=== PATIENT | female | born 1965 | race Caucasian/White ===

== ENCOUNTER → 2020-02-14 08:13 | Outpatient (BNVA) | payer OTHER, SELFPAY | PROVIDERS: PCP Internal Medicine; Referring Provider Internal Medicine; Visit Provider Internal Medicine Cardiovascular Disease | DX: Z76.89 Persons encountering health services in other specified circumstances (principal) ==

== ENCOUNTER 2020-02-28 07:55 | Outpatient (REF) | payer OTHER, SELFPAY ==
[2020-02-28 08:16] LABS: COVID-19 Test Negative (Negative)
== END 2020-02-28 07:56 | disposition home or self-care (01) ==
LOC: HO.EMPCOV 07:55
PROVIDERS: PCP Internal Medicine; Visit Provider Internal Medicine
DX: Z20.828 Contact with and (suspected) exposure to other viral communicable diseases (principal)
CPT/HCPCS: 87635; C9803

== ENCOUNTER 2020-03-05 08:56 | Outpatient (REF) | payer OTHER, SELFPAY ==
[2020-03-05 13:04] LABS: Influenza A PCR NEGATIVE (Negative); Influenza B PCR NEGATIVE (Negative); Resp Syncy Virus RNA Qual PCR NEGATIVE (Negative); SARS COV2 PCR INHOUSE NEGATIVE (Negative)
== END 2020-03-05 08:57 | disposition home or self-care (01) ==
LOC: HO.LAB 08:56
PROVIDERS: Visit Provider Nurse Practitioner Family
DX: R06.02 Shortness of breath (principal); Z20.828 Contact with and (suspected) exposure to other viral communicable diseases
CPT/HCPCS: 0241U

== ENCOUNTER 2020-03-18 07:12 | Outpatient (REF) | payer OTHER, SELFPAY ==
[2020-03-18 08:15] LABS: COVID-19 Test Negative (Negative); IDNOW Serial# 55D5AD1C
== END 2020-03-18 07:13 | disposition home or self-care (01) ==
LOC: HO.EMPCOV 07:12
PROVIDERS: PCP Internal Medicine; Visit Provider Internal Medicine
DX: Z20.828 Contact with and (suspected) exposure to other viral communicable diseases (principal)
CPT/HCPCS: 87635; C9803

== ENCOUNTER 2020-03-24 08:42 | Outpatient (REF) | payer OTHER, SELFPAY ==
[2020-03-24 09:00] LABS: COVID-19 Test Negative (Negative)
== END 2020-03-24 08:43 | disposition home or self-care (01) ==
LOC: HO.EMPCOV 08:42
PROVIDERS: PCP Internal Medicine; Visit Provider Internal Medicine
DX: Z20.828 Contact with and (suspected) exposure to other viral communicable diseases (principal)
CPT/HCPCS: 87635; C9803

== ENCOUNTER → 2020-03-31 12:51 | Outpatient (REF) | payer OTHER, SELFPAY ==
--- NOTE | 2020-03-31 12:54 | HM_ITS ---
IDENTIFICATION DATA: 55-year-old female. TYPE OF PROCEDURE: Cardiac event monitoring. INDICATIONS: Palpitation. REQUESTING PROVIDER: Alli Crespo MD. TECHNIQUE: The patient was hooked up to cardiac event monitor from March 31, 2020 to April 30, 2020 for a total period of 30 days. The patient was continuously monitored during this time. FINDINGS: Baseline rhythm was normal sinus rhythm with heart rate varying from 74 to 81 beats per minute. There were no arrhythmias noted or reported. There were no patient reported events. CONCLUSION: Event monitor is remarkable for baseline normal sinus rhythm with no arrhythmias. Martin Strickland MD NRS/MODL / [id number]
== END ==
LOC: HO.CARD 12:51
PROVIDERS: PCP Internal Medicine; Visit Provider Internal Medicine Cardiovascular Disease
DX: R00.2 Palpitations (principal)
CPT/HCPCS: 93270

== ENCOUNTER 2020-04-17 07:18 | Outpatient (REF) | payer OTHER, SELFPAY ==
[2020-04-17 07:35] LABS: COVID-19 Test Negative (Negative)
== END 2020-04-17 07:19 | disposition home or self-care (01) ==
LOC: HO.EMPCOV 07:18
PROVIDERS: Visit Provider Internal Medicine
DX: Z20.822 Contact with and (suspected) exposure to COVID-19 (principal)
CPT/HCPCS: 36415; 87635; C9803

== ENCOUNTER 2020-05-01 09:15 | Outpatient (REF) | payer OTHER, SELFPAY ==
[2020-05-01 09:33] LABS: COVID-19 Test Negative (Negative); IDNOW Serial# 55D5AD1C
== END 2020-05-01 09:16 | disposition home or self-care (01) ==
LOC: HO.EMPCOV 09:15
PROVIDERS: Visit Provider Internal Medicine
DX: Z20.822 Contact with and (suspected) exposure to COVID-19 (principal)
CPT/HCPCS: 36415; 87635; C9803

== ENCOUNTER 2020-05-21 15:44 | Outpatient (REF) | payer OTHER, SELFPAY ==
[2020-05-21 16:01] LABS: COVID-19 Test Negative (Negative)
== END 2020-05-21 15:45 | disposition home or self-care (01) ==
LOC: HO.LAB 15:44
PROVIDERS: Visit Provider Internal Medicine
DX: Z20.822 Contact with and (suspected) exposure to COVID-19 (principal)
CPT/HCPCS: 36415; 87635; C9803

== ENCOUNTER 2020-05-26 08:10 | Outpatient (REF) | payer OTHER, SELFPAY ==
[2020-05-26 08:20] LABS: COVID-19 Test Positive (Negative)
== END 2020-05-26 08:11 | disposition home or self-care (01) ==
LOC: HO.EMPCOV 08:10
PROVIDERS: Visit Provider Internal Medicine
DX: Z20.822 Contact with and (suspected) exposure to COVID-19 (principal)
CPT/HCPCS: 36415; 87635; C9803

== ENCOUNTER 2020-07-29 14:15 | Outpatient (REF) | payer OTHER, SELFPAY ==
--- NOTE | ~2020-07-29 | XR_ITS ---
EXAMINATION: XR LUMBOSACRAL SPINE WITH OBLIQUES CLINICAL INFORMATION: Low back pain COMPARISON: None TECHNIQUE: AP, both oblique, and lateral views of the lumbar spine. Lateral view of the lumbosacral junction. FINDINGS: There is mild 2 mm anterolisthesis of L4 with respect L5. Bone alignment is otherwise normal. No fracture or dislocation is seen. Disc spaces are normal. No pars defect is seen. There is mild lower lumbar spine facet arthritis. XR/XR lumbar spine 4V min IMPRESSION: Mild lower lumbar spine facet arthritis.
== END 2020-07-29 14:16 | disposition home or self-care (01) ==
LOC: HO.HMGCX 14:15
PROVIDERS: PCP Internal Medicine; Visit Provider Physician Assistant
DX: M54.5 Low back pain (principal); G89.29 Other chronic pain
CPT/HCPCS: 72110

== ENCOUNTER 2020-08-01 06:55 | Outpatient (REF) | payer OTHER, SELFPAY ==
[2020-08-01 11:39] LABS: MANUAL DIFF FLAG NO
[2020-08-01 12:01] LABS: Basophils Absolute Auto 0.1 X10*3/uL (0.0-0.2); Basophils Percent Auto 0.8 % (0-2); Eosinophils Absolute Auto 0.1 X10*3/uL (0.0-0.4); Eosinophils Percent Auto 2.3 % (0-4); Hematocrit 43.7 % (37-47); Hemoglobin 14.4 g/dl (12.0-16.0); Imm Gran Abs Auto 0.01 X10*3/uL (0.00-0.03); Imm Gran Pct Auto 0.2 % (0.0-0.4); Lymphocytes Absolute Auto 1.8 X10*3/uL (1.2-4.9); Lymphocytes Percent Auto 30.1 % (20-40); Mean Corpuscular Hemoglobin 31.4 pg (27.0-33.0); Mean Corpuscular Volume 95.2 fL (80-98); Mean Platelet Volume 9.7 fL (9.4-12.3); Monocytes Absolute Auto 0.6 X10*3/uL (0.1-1.2); Monocytes Percent Auto 9.2 % (2-11); Neutrophils Absolute Auto 3.5 X10*3/uL (2.0-8.3); Neutrophils Percent Auto 57.4 % (45-73); Platelet Count 282 X10*3/uL (160-400); Red Blood Count 4.59 X10*6/uL (4.20-5.50); Red Cell Distribution Width 13.1 % (11.0-16.0); White Blood Count 6.1 X10*3/uL (4.8-10.8)
[2020-08-01 12:02] LABS: Alanine Aminotransferase 79 U/L (0-31); Albumin Level 4.1 g/dL (3.5-5.0); Alkaline Phosphatase 110 U/L (39-117); Anion Gap 16 (12-20); Aspartate Amino Transferase 58 U/L (5-31); Bilirubin Total 1.1 mg/dL (0.0-1.0); Blood Urea Nitrogen 14 mg/dL (9-16); Calcium 9.4 mg/dL (8.4-10.2); Carbon Dioxide 24 mmol/L (22-29); Chloride 105 mmol/L (96-108); Cholesterol 137 mg/dL; Estimated Glomerular Filt Rate > 60; Glucose Fasting 100 mg/dL (60-99); HDL Cholesterol 32 mg/dL; LDL Cholesterol Calculated 74 mg/dl; Potassium 3.8 mmol/L (3.3-5.1); Sodium 141 mmol/L (135-145); Triglycerides 158 mg/dL
== END 2020-08-01 06:56 | disposition home or self-care (01) ==
LOC: HO.HMGCLDS 06:55
PROVIDERS: PCP Internal Medicine; Visit Provider Physician Assistant
DX: Z00.00 Encounter for general adult medical examination without abnormal findings (principal); I25.10 Atherosclerotic heart disease of native coronary artery without angina pectoris
CPT/HCPCS: 36415; 80053; 80061; 85025

== ENCOUNTER 2020-08-07 07:26 | Outpatient (REF) | payer OTHER, SELFPAY ==
[2020-08-07 11:51] LABS: Estimated Average Glucose 114 mg/dL; Hemoglobin A1c % 5.6 %
== END 2020-08-07 07:27 | disposition home or self-care (01) ==
LOC: HO.HMGCLDS 07:26
PROVIDERS: PCP Internal Medicine; Visit Provider Internal Medicine
DX: R73.9 Hyperglycemia, unspecified (principal)
CPT/HCPCS: 36415; 83036

== ENCOUNTER 2020-08-30 07:51 | Outpatient (REF) | payer OTHER, SELFPAY ==
--- NOTE | ~2020-08-30 | MM_ITS ---
EXAMINATION: MM SCREENING DIGITAL BREAST TOMOSYNTHESIS, BILATERAL CLINICAL INFORMATION: Screening. Asymptomatic. The lifetime risk of breast cancer based on the Tyrer-Cuzick Model is 5%. COMPARISON: Mammography: 06/18/2019; outside mammography 06/12/2018 and 06/01/2017 ([place]). TECHNIQUE: Digital breast tomosynthesis is performed in both the craniocaudal and mediolateral oblique views along with computer-aided detection (CAD). Synthesized 2D images are generated from the tomosynthesis. Additional left cleavage view is provided. FINDINGS: There are scattered areas of fibroglandular density (ACR BI-RADS breast composition Category b). The left CC view has a 0.9 cm nodular density with anterior pointed apex at the posterior medial breast. The finding extends beyond the posterior medial film margin. There is no correlate on MLO or left cleavage view. This most likely is related to artifact from the sternalis muscle. Patient will be recalled to further characterize. The remainder of the breasts are unremarkable. There are no abnormal calcifications. The axilla and skin contours are unremarkable. MM/MM tomosynthesis screening BI IMPRESSION: 1. Left: Nodular asymmetric density extending beyond film margin posterior medial left breast limited to CC view. Finding most likely related to artifact from sternalis muscle. 2. Right: No mammographic evidence of malignancy. ASSESSMENT: BI-RADS 0: Incomplete - Need Additional Imaging Evaluation RECOMMENDATION: 1. Additional views of the left breast (3-D LM). 2. Targeted ultrasound left breast. 3. Radiology department staff will contact the patient for additional imaging. This patient's information was entered into a reminder system with a target due date for their next mammogram.
== END 2020-08-30 07:52 | disposition home or self-care (01) ==
LOC: HO.MAMMO 07:51
PROVIDERS: Visit Provider Internal Medicine
DX: Z12.31 Encounter for screening mammogram for malignant neoplasm of breast (principal)
CPT/HCPCS: 77063; 77067

== ENCOUNTER 2020-09-08 10:46 | Outpatient (REF) | payer OTHER, SELFPAY ==
--- NOTE | ~2020-09-08 | US_ITS ---
EXAMINATION: MM DIAGNOSTIC DIGITAL BREAST TOMOSYNTHESIS, LEFT US DIAGNOSTIC ULTRASOUND BREAST, LEFT CLINICAL INFORMATION: Recall from screening for asymmetric density posterior medial breast on MLO view possibly sternalis muscle artifact. COMPARISON: Mammography: 08/30/2020, 06/18/2019; outside mammography 06/12/2018 and 06/01/2017 ([place]). TECHNIQUE: Digital breast tomosynthesis is performed. 2D images are generated from the tomosynthesis. The following views are obtained: CC medial and LM x2 projections are obtained. Ultrasound left breast is targeted to the medial aspect. Grayscale imaging and color Doppler are performed without and with harmonics. FINDINGS: There are scattered areas of fibroglandular density (ACR BI-RADS breast composition Category b). There is a cutaneous scar corresponding to prior sternotomy which is marked on the CC medial view. This resides close to the area of recall. The additional views show no persistent asymmetric density or mass or architectural abnormality. Ultrasound demonstrates no chest wall lesion. There is no cystic or solid mass or architectural abnormality. Results are discussed with the patient at time of visit. US/US breast LT limited IMPRESSION: Additional views show no persistent asymmetric density. Targeted ultrasound is unremarkable. No chest wall mass. ASSESSMENT: BI-RADS 2: Benign RECOMMENDATION: Routine annual mammography screening. This patient's information was entered into a reminder system with a target due date for their next mammogram.
== END 2020-09-08 10:47 | disposition home or self-care (01) ==
LOC: HO.MAMMO 10:46
PROVIDERS: Visit Provider Internal Medicine
DX: R92.2 Inconclusive mammogram (principal)
CPT/HCPCS: 76642; 77061; 77065

== ENCOUNTER 2020-10-20 07:54 | Emergency (ER) | payer OTHER, SELFPAY ==
[2020-10-20 07:56] VITALS: BP 129/61; PULSE 88; RESP 16; TEMP 36.6; O2SAT 95; BMI 26.4
--- NOTE | 2020-10-20 09:29 | ED.GENADULT ---
HPI - General Adult General Chief complaint: Back Pain/Injury Stated complaint: back pain Time Seen by Provider: 10/20/20 09:06 Source: patient Mode of arrival: ambulatory Limitations: no limitations History of Present Illness HPI narrative: 55-year-old female who presents emergency department for evaluation of severe lower back pain. Patient states that on Tuesday she did do some exercises. She woke up on Tuesday morning (3 days prior to evaluation) with pain and her left lower back area. She states that the pain has now changed is located in the right lower back area only. She states the pain is a constant, sharp pain which is 9/10 at its worst. The pain is worse with movement. She states the pain does radiate to her right hip. She denies numbness or weakness of her lower extremities. Denies loss of bowel or better control. She has been taking acetaminophen with no relief for pain. Today, the patient is having difficulty walking secondary to the severity of her pain. Patient states that she has been having intermittent back pain over the past several months . She had a lumbar spine x-ray on 07/29/2020 which revealed mild lower lumbar spine facet arthritis with mild 2 mm anteriorlithiasis of L5 with respect to L4. Related Data Home Medications Medication Instructions Recorded Confirmed aspirin 81 mg tablet,delayed 81 mg PO DAILY 02/14/20 07/17/20 release atorvastatin 80 mg tablet 80 mg PO DAILY 02/14/20 07/17/20 fexofenadine 180 mg tablet 180 mg PO DAILY 02/14/20 07/17/20 fluticasone propionate 50 spray INTRANASAL 02/14/20 07/17/20 mcg/actuation nasal spray,suspension metoprolol succinate 25 mg 25 mg PO DAILY 02/14/20 07/17/20 tablet,extended release 24 hr Previous Rx's Medication Instructions Recorded erythromycin 5 mg/gram (0.5 %) eye 1 appl OPHTHALMIC-LEFT QID #3.5 g 09/09/20 ointment cyclobenzaprine 10 mg PO TID PRN #15 tab 10/20/20 Allergies Allergy/AdvReac Type Severity Reaction Status Date / Time cabbage Allergy Severe HIVES Unverified 12/13/19 15:51 lorazepam [Ativan] Allergy Severe Swelling Verified 10/20/20 09:46 peanut [PEANUT] Allergy Unknown HIVES Unverified 12/13/19 15:51 SEAFOOD Allergy Severe DIFFICULTY Uncoded 12/13/19 15:51 BREATHING Review of Systems Review of Systems: Yes all other systems are reviewed and are negative [facility] Past Medical History [facility] Narrative: Social history: She denies tobacco use, she drinks alcohol in moderation. She denies drug use. Medical History Coronary artery dissection Ischemic cardiomyopathy Palpitations Surgical History H/O tubal ligation H/O: hysterectomy S/P CABG x 2 Family History Family History Father Diabetes Hypertension Cirrhosis Mother Hypertension Arthritis Osteoporosis FHx: mental illness Social History Social History Advance Directives: Yes Advance Directives Information Provided: Yes Advance Directives on File: No Physical Exam Vital Signs: Vital Signs: Last Vital Signs Temp 98.3 F 10/20/20 09:43 Pulse 77 10/20/20 09:43 Resp 16 10/20/20 09:43 BP 126/60 10/20/20 09:43 Pulse Ox 96 10/20/20 09:43 Body Mass Index 26.4 Const: Other: Very pleasant, cooperative female, awake, alert, answers all questions appropriately, appears to be in distress secondary to her pain, the patient had difficulty moving from the wheelchair to the stretcher required assistance from me and her and ordered to get her into the bed. HENMT: Head: Yes normal to inspection, Yes normocephalic and Yes atraumatic Ears: external ears normal General nose exam: Normal external nose present Face and sinus: Yes normal facial exam Mouth: Normal oral and palatal mucosa present Throat: Yes posterior oropharynx normal Eyes: Periorbital: periorbital findings normal Eyelids: Yes eyelids normal Conjunctivae: conjunctivae normal Sclerae: sclerae normal Corneas: corneas normal Pupils: Equal, round and reactive pupils present Direct Ophthalmoscopy: normal light reflex Neck: Neck: Yes full ROM, Yes no lymphadenopathy, Yes no meningeal signs, Yes trachea midline and Yes supple Chest: Chest palpation & inspection: normal inspection of the chest and normal palpation of entire chest wall Resp: Effort & Inspection: normal respiratory effort and able to speak in complete sentences Auscultation: clear to auscultation bilaterally Cardio: Rate: regular rate Rhythm: regular rhythm Heart sounds: S1 normal heart sound present, S2 normal heart sound present and no murmurs GI: Inspection: Yes normal to inspection Palpation (GI): Soft to palpation, nontender, no guarding, not rigid and No hepatosplenomegaly present : General: Yes no CVA tenderness Back/Spine/Pelvis: Back: no CVA tenderness Cervical Spine: normal cervical lordosis Thoracic/Lumbar Spine: thoracic and lumbar spine normal to inspection, straight leg raise negative bilaterally, No paraspinal muscle tenderness, No thoraco-lumbar spasm, No thoracic spinal tenderness, No lumbar spinal tenderness and other (Tender right SI joint) Skin: Lesions: no lesions Rashes: no rashes Wounds: no wounds Neuro: General: no meningeal signs Cranial nerves: Yes CN's II-XII intact bilaterally and Yes Equal, round and reactive pupils present Cognition (Neuro): normal cognition Motor exam (neuro): 5/5 motor strength present throughout Extrem: General: Yes normal to inspection and Yes full ROM Psych: Appearance: well kempt Mental Status: mental status grossly normal Speech and movement: Normal speech and movement present Affect: normal affect Attitude: cooperative Thought process: Normal thought process present Thought content: Normal thought content present Course Course Course Narrative: 55-year-old female who presents emergency department for evaluation of 3 days lower back pain, currently complaining severe, constant, right lower back pain radiating to her right hip. Physical examination did reveal that she was in distress secondary to her pain and had difficulty moving from the wheelchair to stretcher. She does have very localized tenderness with palpation of her right SI joint suggesting that she most likely injury to this joint she was exercising and now has sacral ileitis. At this time I do not think that she was imaging studies. Patient was treated with Toradol 30 mg IV with the goal of trying to reduce her pain to a tolerable level so that she will be discharged home today 1201: The patient did get some improvement with the above treatment, she does not want any further pain medications she wants to go home. I did offer the patient a short course of steroids but she states she does not want steroids at this time. Patient was advised to take ibuprofen and Tylenol for pain. She was given a prescription for Flexeril for pain and spasm. She was advised to apply ice and heat. The patient was given verbal and printed instructions prior to discharge. The patient was advised to follow-up with their PCP in 2 days and to return to the emergency department if their symptoms get worse or if they develop any new symptoms that are concerning to them. Discharge Plan Discharge Clinical Impression: Sacroiliitis Patient Disposition: Home, Self-Care Instructions: Sacroiliitis (ED) Additional Instructions: Your findings are consistent with inflammation of the sacroiliac joint most likely caused by exercising. Take Motrin (ibuprofen) 200 mg pills, 2 pills every 6 hours as needed for pain. Take Tylenol (acetaminophen) 500 mg pills, 2 pills every 6 hours as needed for pain. Take Flexeril (cyclobenzaprine) 10 mg pills, 1 pill every 8 hours as needed for pain or muscle spasm. This is a prescription medication. This medication will make you sleepy, therefore do not drive or work while taking this medication. Apply ice for 15 minutes to the area that hurts on your back, then apply a heating a pad on low for 15 minutes. Do this 4-6 times a day to help reduce the pain in your back. Continue with normal activities as tolerated since staying in bed and not moving around will make your pain worse. Please return to the Emergency Department or see your doctor immediately if your symptoms get worse or if you develop any new symptoms that are concerning you. Follow up with your doctor in 2 day. Please read the other printed discharge instructions on sacroiliitis. Prescriptions: New cyclobenzaprine 10 mg tablet 10 mg PO TID PRN (Reason: pain, muscle spasm) Qty: 15 RF: 0 No Action erythromycin 5 mg/gram (0.5 %) ointment 1 appl ophthalmic-Left QID Qty: 3.5 RF: 0 metoprolol succinate 25 mg tablet extended release 24 hr 25 mg PO DAILY RF: 0 fluticasone propionate 50 mcg/actuation spray,suspension intranasal RF: 0 fexofenadine 180 mg tablet 180 mg PO DAILY RF: 0 atorvastatin 80 mg tablet 80 mg PO DAILY RF: 0 aspirin 81 mg tablet,delayed release (DR/EC) 81 mg PO DAILY RF: 0 Stand Alone Forms: Work/School Release
[2020-10-20] MEDS: Ketorolac Tromethamine 15 MG/ML VIAL 30 MG IVPUSH (09:41)
[2020-10-20 09:43] VITALS: BP 126/60; PULSE 77; RESP 16; TEMP 36.8; O2SAT 96
== END 2020-10-20 12:15 | disposition home or self-care (01) ==
PROVIDERS: Emergency Provider Emergency Medicine Emergency Medical Services; PCP Internal Medicine
DX: M46.1 Sacroiliitis, not elsewhere classified (principal); M54.5 Low back pain
CPT/HCPCS: 96374; 99283; 99284; J1885

== ENCOUNTER 2021-01-23 10:49 | Outpatient (REF) | payer OTHER, SELFPAY ==
[2021-01-23 13:55] LABS: MANUAL DIFF FLAG NO
[2021-01-23 14:02] LABS: Basophils Absolute Auto 0.1 X10*3/uL (0.0-0.2); Basophils Percent Auto 0.9 % (0-2); Eosinophils Absolute Auto 0.3 X10*3/uL (0.0-0.4); Hematocrit 43.5 % (37-47); Hemoglobin 14.2 g/dl (12.0-16.0); Imm Gran Abs Auto 0.02 X10*3/uL (0.00-0.03); Imm Gran Pct Auto 0.3 % (0.0-0.4); Lymphocytes Absolute Auto 2.3 X10*3/uL (1.2-4.9); Lymphocytes Percent Auto 33.8 % (20-40); Mean Corpuscular HGB Conc 32.6 g/dl (31.0-35.0); Mean Corpuscular Hemoglobin 30.7 pg (27.0-33.0); Mean Platelet Volume 9.7 fL (9.4-12.3); Monocytes Absolute Auto 0.7 X10*3/uL (0.1-1.2); Monocytes Percent Auto 10.6 % (2-11); Neutrophils Absolute Auto 3.4 X10*3/uL (2.0-8.3); Neutrophils Percent Auto 50.4 % (45-73); Platelet Count 294 X10*3/uL (160-400); Red Blood Count 4.63 X10*6/uL (4.20-5.50); Red Cell Distribution Width 13.2 % (11.0-16.0); White Blood Count 6.7 X10*3/uL (4.8-10.8)
[2021-01-23 14:47] LABS: Thyroid Stimulating Hormone 1.65 uIU/mL (0.32-4.0)
== END 2021-01-23 10:50 | disposition home or self-care (01) ==
LOC: HO.HMGCLDS 10:49
PROVIDERS: PCP Internal Medicine; Visit Provider Internal Medicine
DX: I25.10 Atherosclerotic heart disease of native coronary artery without angina pectoris (principal); L65.9 Nonscarring hair loss, unspecified
CPT/HCPCS: 36415; 84443; 85025

== ENCOUNTER 2021-03-04 09:53 | Outpatient (REF) | payer OTHER, SELFPAY ==
--- NOTE | ~2021-03-04 | XR_ITS ---
EXAMINATION: XR CHEST CLINICAL INFORMATION: Cough COMPARISON: Previous chest x-ray October 2018 TECHNIQUE: 2 views of the chest were obtained. FINDINGS: The cardiac and mediastinal contours are stable. The lungs are clear. There is no pleural effusion or pneumothorax. There are median sternotomy wires. There are mild degenerative changes of the spine. XR/XR chest 2V IMPRESSION: No evidence for acute disease in the chest.
[2021-03-04 12:08] LABS: Influenza A PCR NEGATIVE (Negative); Influenza B PCR NEGATIVE (Negative); Resp Syncy Virus RNA Qual PCR NEGATIVE (Negative); SARS COV2 PCR INHOUSE NEGATIVE (Negative)
== END 2021-03-04 09:54 | disposition home or self-care (01) ==
LOC: HO.HMGCX 09:53
PROVIDERS: PCP Internal Medicine; Visit Provider Physician Assistant Medical
DX: J06.9 Acute upper respiratory infection, unspecified (principal); R05.9 Cough, unspecified; Z20.822 Contact with and (suspected) exposure to COVID-19
CPT/HCPCS: 0241U; 36415; 71046

== ENCOUNTER → 2021-09-03 14:15 | Outpatient (BNVA) | payer OTHER, SELFPAY | PROVIDERS: PCP Internal Medicine; Referring Provider Internal Medicine; Visit Provider Nurse Practitioner Family | DX: I25.42 Coronary artery dissection (principal); I25.5 Ischemic cardiomyopathy; R94.31 Abnormal electrocardiogram [ECG] [EKG]; R00.2 Palpitations; Z95.1 Presence of aortocoronary bypass graft | CPT/HCPCS: 93005 ==

== ENCOUNTER → 2021-09-04 09:20 | Outpatient (REF) | payer OTHER, SELFPAY ==
--- NOTE | 2021-09-04 09:23 | CA_ITS ---
Transthoracic Echocardiogram Patient (Last, First, Middle): Katy Mcfadden M Gender: Female Date of : 1965 Age: 56 Procedure Date: 09/04/2021 Procedure Type: Transthoracic Echocardiogram Location: OP Height: 154.94 cm Weight: 67.13 kg BSA: 1.66 m2 Heart Rate: bpm BP: 116 / 60 mmHg Consulting Technical Manager: Referring MD: Elham White [employer] Symptoms: I25.5 ISCHEMIC CARDIOMYOPTHY, S/P CABG X2 Study Quality: Fair ECG Rhythm: Sinus Conclusions: - The left ventricular systolic function is low normal. The visually estimated ejection fraction is between 50-55%. - There is evidence of regional wall motion abnormalities. - No obvious valvular pathology seen on this study. Findings Left Ventricle Normal left ventricular cavity size. There is mildly increased left ventricular wall thickness. The left ventricular systolic function is low normal. The visually estimated ejection fraction is between 50-55%. There is evidence of regional wall motion abnormalities. There is paradoxical septal motion consistent with post-operative status. Diastolic function is normal for age. Wall Motion Rest Echo Findings The mid inferior segment is hypokinetic. The inferolateral wall and basal inferior segment are akinetic. Right Ventricle Normal right ventricular cavity size. There is mildly decreased right ventricular systolic function. Atria Both atria are normal in size. Aortic Valve There is a normal trileaflet aortic valve. There is no aortic valve stenosis. There is mild aortic valve regurgitation. Mitral Valve The mitral valve appears normal. There is trace mitral valve regurgitation. There is no mitral valve stenosis. Pulmonic Valve The pulmonic valve was not well visualized. There is trace pulmonic valve regurgitation. Tricuspid Valve Normal tricuspid valve structure. There is mild tricuspid valve regurgitation. The pulmonary artery systolic pressure is normal. Great Vessels The aortic annulus, sinuses of valsalva, and asc aorta are normal in size. Small plaque is seen in the sino tubular ridge. Venous The inferior vena cava is normal in size and collapses greater than 50% with inspiration. Pericardium/Pleural There is no evidence of pericardial effusion. Prior Study Comparison No prior study available for comparison. Recommendations, Care & Conclusions No obvious valvular pathology seen on this study. Measurements 2D Linear Measurements IVSd: 1.15 0.6-0.9/0.6-1.0 cm LVIDd: 4.24 3.9-5.3/4.2-5.9 cm LVIDd Index: 2.55 2.4-3.2/2.2-3.1 cm/m2 LVIDs: 3.17 2.0-3.6 cm LVPWd: 1.04 0.7-1.1 cm Ao Root: 2.60 2.1-3.5 cm LA Diam: 3.80 2.7-3.8/3.0-4.0 cm LAIDs Index: 2.29 1.5-2.3 cm/m2 LV Mass: 197.21 67-162/88-224 g LV Mass Index: 118.80 43-95/49-115 g/m2 LVOT Diam: 2.10 3.0+(-)1.3 cm 2D Systolic Function EF 4C: 63.40 >55% EF 2C: 57.00 >55% EF BiP: 61.50 >55% Mitral Valve MV Pk E: 0.57 MV PK A: 0.71 MV Decel Time: 234.00 E/A: 0.80 E'Lateral: 9.68 E'Medial: 4.68 E/E' Med: 12.20 E/E' Lat: 5.90 PHT: 69.00 MVA PHT: 3.19 Decel Carlton: 2.43 Aortic Valve AoV Pk Lencho: 1.50 AoV Mn Lencho: 0.95 AoV VTI: 0.34 AoV Pk Grad: 9.00 Aov Mn Grad: 4.00 YAZAN Cont.VTI: 2.47 AI Pk Lencho: 4.67 AI Carlton: 3.02 LVOT LVOT Pk Lencho: 1.28 LVOT Mn Lencho: 0.73 LVOT VTI: 0.24 LVOT Pk Grad: 7.00 LVOT Mn Grad: 3.00 LVOT Diam: 2.10 LVOT Area: 3.46 Diastolic Function MV Pk E: 0.57 MV Pk A: 0.71 E/A: 0.80 E'Medial: 4.68 E/E' Med: 12.20 E' Laterial: 9.68 E/E' Lat: 5.90 Right Ventricle TAPSE (mm): 16.00 Tricuspid Valve TR Pk Lencho: 2.29 TR Pk Grad: 21.00 RA Press: 3.00 RVSP: 24.00 Great Vessels Aorta Ao Root-2D: 2.60 2.0-3.7 cm Ao Asc: 3.00 2.1-3.4 cm Pulmonary Valve PV Pk Lencho: 0.99 Peak PV Grad: 4.00 Updated in Other Vendor System with Status of Final Сергей Barba MD electronically signed on 09/06/2021 1:26:50 PM with status of Final
== END ==
LOC: HO.CARD 09:20
PROVIDERS: PCP Internal Medicine; Visit Provider Nurse Practitioner Family
DX: I25.5 Ischemic cardiomyopathy (principal); R94.31 Abnormal electrocardiogram [ECG] [EKG]
CPT/HCPCS: 93306

== ENCOUNTER 2021-09-05 07:14 | Outpatient (REF) | payer OTHER, SELFPAY ==
--- NOTE | ~2021-09-05 | MM_ITS ---
EXAMINATION: MM SCREENING DIGITAL BREAST TOMOSYNTHESIS, BILATERAL CLINICAL INFORMATION: Screening. Asymptomatic. The lifetime risk of breast cancer based on the Tyrer-Cuzick Model is 5%. COMPARISON: Mammography: 09/08/2020, 08/30/2020, 06/18/2019; outside exam 06/12/2018 ([place]). TECHNIQUE: Digital breast tomosynthesis is performed in both the craniocaudal and mediolateral oblique views along with computer-aided detection (CAD). Synthesized 2D images are generated from the tomosynthesis. FINDINGS: There are scattered areas of fibroglandular density (ACR BI-RADS breast composition Category b). There are no significant masses, abnormal calcifications, or other abnormalities. Parenchymal pattern is similar to prior studies. No developing density. No significant changes. MM/MM tomosynthesis screening BI IMPRESSION: No mammographic evidence of malignancy. ASSESSMENT: BI-RADS 1: Negative RECOMMENDATION: Routine annual mammography screening. This patient's information was entered into a reminder system with a target due date for their next mammogram.
== END 2021-09-05 07:15 | disposition home or self-care (01) ==
LOC: HO.MAMMO 07:14
PROVIDERS: Visit Provider Internal Medicine
DX: Z12.31 Encounter for screening mammogram for malignant neoplasm of breast (principal)
CPT/HCPCS: 77063; 77067

== ENCOUNTER → 2021-09-16 07:33 | Outpatient (REF) | payer OTHER, SELFPAY ==
--- NOTE | ~2021-09-16 | NM_ITS ---
Myocardial perfusion study Indication: Abnormal EKG to evaluate for myocardial ischemia Technique: The patient was brought in for a Lexiscan perfusion study on 09/16/2021. Patient performed low-level exercise and was injected 0.4 mg of Lexiscan intravenously. Within a minute of injection, 25 mCi of sestamibi was given intravenously. Images were obtained using the SPECT gamma camera interlaced with the gating device. Images were obtained in supine position. Resting perfusion study was performed on 09/17/2021. Patient was administered 25 mCi of sestamibi intravenously at rest. Images were then obtained in supine position. Images obtained with and without CT attenuation. Total DLP 88 mGy-cm. Images were processed with the software and compared side to side in short axis, horizontal long axis and vertical long axis views. Findings: The stress perfusion study showed non attenuated images show absent uptake in the basal and moderate to severely reduced uptake in the mid inferior wall of the LV myocardium. Remainder of the LV myocardium is normally perfused. Attenuation corrected images also show absent uptake in the basal inferior and mildly to moderately reduced uptake in the mid inferior wall of the LV myocardium remainder of the LV myocardium is normally perfused.. The gated study shows normal LV systolic function with calculated LVEF of 68%. LV cavity is normal in size. The gated study shows reduced wall thickening and contraction of basal inferior segments. Resting study shows non attenuated images show no improvement in uptake in the basal and mid inferior wall. Gating at rest reveals basal inferior wall motion abnormality with ejection fraction at greater than 60%. The findings are consistent with transmural infarct of the basal inferior and noncontrast the mid inferior wall of the LV myocardium. There is no reversible ischemia. NM/NM cardiolite stress test Impression: 1. 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 Gated LVEF is 68% 3. Transient ischemic dilatation not present EKG is nondiagnostic for ischemia
--- NOTE | 2021-09-16 07:36 | CA_ITS ---
Acquisition Time: 2021-09-16 08:13:49 Total Exercise Time: 00:06:30 Test Indications: ABN EKG Medications: SEE CHART Protocol: MISSAEL Max HR: 153 BPM 93% of Pred: 164 BPM Max BP: 146/080 mmHG Max Work Load: 7.7 METS Exercise stress test with exercise 6 min 30 sec of Missael protocol, achieving 92% MPHR, without anginal symptoms, with one PVC, with normotensive response to exercise, with nondiagnostic EKG for ischemia due to baseline abnormality. Nuclear images pending. Test reviewed with Dr Strickland. Referred By: Elham White Overread By: ELHAM WHITE
== END ==
LOC: HO.CARD 07:33
PROVIDERS: Visit Provider Nurse Practitioner Family
DX: I25.42 Coronary artery dissection (principal); I25.5 Ischemic cardiomyopathy; R94.31 Abnormal electrocardiogram [ECG] [EKG]
CPT/HCPCS: 78452; 93017; A9500; J0280; J2785

== ENCOUNTER 2022-01-22 20:24 | Emergency (ER) | payer OTHER, SELFPAY ==
[2022-01-22 21:16] VITALS: BP 166/60; PULSE 77; RESP 16; TEMP 36.8; O2SAT 98; BMI 27.9
[2022-01-22 21:57] LABS: MANUAL DIFF FLAG NO
[2022-01-22 22:02] LABS: Basophils Absolute Auto 0.1 X10*3/uL (0.0-0.2); Basophils Percent Auto 0.7 % (0-2); Eosinophils Absolute Auto 0.1 X10*3/uL (0.0-0.4); Eosinophils Percent Auto 1.3 % (0-4); Hematocrit 47.1 % (37.0-47.0); Hemoglobin 15.6 g/dl (12.0-16.0); Imm Gran Abs Auto 0.02 X10*3/uL (0.00-0.03); Imm Gran Pct Auto 0.2 % (0.0-0.4); Lymphocytes Percent Auto 21.8 % (20-40); Mean Corpuscular HGB Conc 33.1 g/dl (31.0-35.0); Mean Corpuscular Hemoglobin 30.5 pg (27.0-33.0); Mean Platelet Volume 9.2 fL (9.4-12.3); Monocytes Absolute Auto 0.7 X10*3/uL (0.1-1.2); Monocytes Percent Auto 7.1 % (2-11); Neutrophils Absolute Auto 6.3 x10*3/uL (2.0-8.3); Neutrophils Percent Auto 68.9 % (45-73); Platelet Count 287 X10*3/uL (160-400); Red Blood Count 5.12 X10*6/uL (4.20-5.50); Red Cell Distribution Width 12.4 % (11.0-16.0); White Blood Count 9.1 X10*3/uL (4.8-10.8)
[2022-01-22 22:15] LABS: Alanine Aminotransferase 57 U/L (0-31); Alkaline Phosphatase 143 U/L (39-117); Anion Gap 18 (12-20); Aspartate Amino Transferase 43 U/L (5-31); Bilirubin Direct 0.4 mg/dL (0.0-0.5); Bilirubin Total 1.2 mg/dL (0.0-1.0); Blood Urea Nitrogen 12 mg/dL (9-16); Calcium 10.6 mg/dL (8.4-10.2); Carbon Dioxide 26 mmol/L (22-29); Chloride 103 mmol/L (96-108); Creatinine Clr Calc Pharmacy 55.6; Estimated Glomerular Filt Rate 58; Glucose Random 126 mg/dL (60-115); Lipase 24 U/L (8-78); Potassium 4.3 mmol/L (3.3-5.1); Sodium 143 mmol/L (135-145); Total Protein 8.4 g/dL (6.5-8.0)
--- NOTE | 2022-01-22 23:37 | ED.CHESTPAIN ---
HPI - Chest Pain General Chief Complaint: Abdominal Pain Stated Complaint: upper flank painleft Time Seen by Provider: 01/22/22 23:13 Source: patient Mode of arrival: ambulatory Limitations: no limitations History of Present Illness HPI narrative: 56-year-old female who presents emergency department for evaluation of left anterior chest pain. She states that the pain came on suddenly at 16:30 hours when she was getting up off the couch she points to her left lateral anterior chest when asked to localize the pain. She states the pain is a constant dull pain which is 3/10 at its worst. The pain does not change with movement or with breathing. She denied fever, chills, cough, shortness of breath or dyspnea on exertion. Patient states she has been exercising over the past 3 days and has been doing core exercises but she does not recall injuring herself in any way. MD complaint: chest pain Pertinent past history: coronary artery disease Onset (ago): hour(s) (7 prior to my evaluation) Timing of current episode: constant Prior episodes: No Onset: other (Sitting up from a lying position while she was on the couch) Pain location: left chest Pain radiation: none Severity: mild Pain scale (0-10): 3 Quality: aching Relieving factors: nothing Exacerbating factors: nothing Treatment prior to arrival: none Related Data Home Medications Medication Instructions Recorded Confirmed aspirin 81 mg tablet,delayed 81 mg PO DAILY 02/14/20 09/03/21 release atorvastatin 80 mg tablet 80 mg PO DAILY 02/14/20 09/03/21 fexofenadine 180 mg tablet 180 mg PO DAILY 02/14/20 09/03/21 fluticasone propionate 50 spray intranasal 02/14/20 09/03/21 mcg/actuation nasal spray,suspension metoprolol succinate 25 mg 25 mg PO DAILY 02/14/20 09/03/21 tablet,extended release 24 hr Previous Rx's Medication Instructions Recorded cyclobenzaprine 10 mg tablet 10 mg PO TID PRN pain, muscle 10/20/20 spasm #15 tabs Allergies Allergy/AdvReac Type Severity Reaction Status Date / Time cabbage Allergy Severe HIVES Verified 01/22/22 21:18 lorazepam [Ativan] Allergy Severe Swelling Verified 01/22/22 21:18 peanut [PEANUT] Allergy Unknown HIVES Verified 01/22/22 21:18 SEAFOOD Allergy Severe DIFFICULTY Uncoded 09/03/21 14:52 BREATHING Review of Systems Review of Systems: Yes all other systems are reviewed and are negative [facility] Past Medical History [facility] Narrative: Social history: She denies tobacco use. She drinks 1 glass of wine once a week. She denies drug use. Medical History Coronary artery dissection Ischemic cardiomyopathy Palpitations Surgical History H/O tubal ligation H/O: hysterectomy S/P CABG x 2 Family History Family History Father Diabetes Hypertension Cirrhosis Mother Hypertension Arthritis Osteoporosis FHx: mental illness Social History Social History Alcohol intake: current Alcohol intake frequency: a few times a month Alcohol type: wine Patient Tobacco Use Status: Never used Tobacco Use of substances other than those prescribed or required for medical reasons: No Advance Directives: No Advance Directives Information Provided: No Patient : No Physical Exam Vital Signs: Vital Signs: Last Vital Signs Temp 98.2 F 01/22/22 21:16 Pulse 77 01/22/22 21:16 Resp 16 01/22/22 21:16 BP 166/60 H 01/22/22 21:16 Pulse Ox 98 01/22/22 21:16 O2 Del Method 01/22/22 21:16 BMI result Body Mass Index 27.9 Const: General: cooperative and no acute distress Orientation/consciousness: oriented to person and oriented to place Limitations: no limitations HEENT: Head: Yes normal to inspection, Yes normocephalic and Yes atraumatic Ears: external ears normal General nose exam: Normal external nose present Face and sinus: Yes normal facial exam Mouth: Normal oral and palatal mucosa present Throat: Yes posterior oropharynx normal Eyes: General: appearance normal, both eyes and all related structures Pupils: Equal, round and reactive pupils present Neck: Neck: Yes normal visual inspection, Yes no lymphadenopathy, Yes trachea midline and Yes supple Chest: Chest palpation & inspection: normal inspection of the chest and tenderness (Left anterior chest) Resp: Effort & Inspection: normal respiratory effort and able to speak in complete sentences Auscultation: clear to auscultation bilaterally Cardio: Rate: regular rate Rhythm: regular rhythm Heart sounds: S1 normal heart sound present, S2 normal heart sound present and no murmurs GI: Inspection: Yes normal to inspection Palpation (GI): Soft to palpation, nontender and no guarding Auscultation: normal bowel sounds : General: Yes no CVA tenderness Back/Spine/Pelvis: Back: no CVA tenderness Skin: General skin exam: no rashes or lesions noted Neuro: General: oriented to person and oriented to place Cranial nerves: Yes CN's II-XII intact bilaterally and Yes Equal, round and reactive pupils present Cognition (Neuro): normal cognition Motor exam (neuro): 5/5 motor strength present throughout Extrem: General: Yes normal to inspection Psych: Appearance: grossly normal Speech and movement: Normal speech and movement present Affect: normal affect Attitude: cooperative Thought process: Normal thought process present Thought content: Normal thought content present Course Course Course Narrative: 56-year-old female who presents emergency department for evaluation of anterior left chest pain that occurred when she sat up and got off the sofa at 16:30 hours. Since that time the pain is been constant, mild 3/10, does not change with movement or breathing. Physical examination did reveal left sided chest wall tenderness. Patient had a CBC, CMP which was unremarkable. The patient has been doing core exercises over the past 3 days. At this time I believe the patient's pain is secondary to musculoskeletal strain I did discuss this with her. She was advised to take Tylenol for the pain. She was advised to use ice and heat. She was given printed and verbal instructions discharged home. MDM - Chest Pain Lab Data Result diagrams: 01/22/22 21:53 01/22/22 21:53 Labs: Lab Results 01/22/22 01/22/22 Range/Units 21:53 21:53 WBC 9.1 (4.8-10.8) X10*3/uL RBC 5.12 (4.20-5.50) X10*6/uL Hgb 15.6 (12.0-16.0) g/dl Hct 47.1 H (37.0-47.0) % MCV 92.0 (80.0-98.0) fL MCH 30.5 (27.0-33.0) pg MCHC 33.1 (31.0-35.0) g/dl RDW 12.4 (11.0-16.0) % Plt Count 287 (160-400) X10*3/uL MPV 9.2 L (9.4-12.3) fL Immature Gran % (Auto) 0.2 (0.0-0.4) % Neut % (Auto) 68.9 (45-73) % Lymph % (Auto) 21.8 (20-40) % [place] % (Auto) 7.1 (2-11) % Eos % (Auto) 1.3 (0-4) % Baso % (Auto) 0.7 (0-2) % Lymph # (Auto) 2.0 (1.2-4.9) X10*3/uL [place] # (Auto) 0.7 (0.1-1.2) X10*3/uL Eos # (Auto) 0.1 (0.0-0.4) X10*3/uL Baso # (Auto) 0.1 (0.0-0.2) X10*3/uL Abs Immat Gran (auto) 0.02 (0.00-0.03) X10*3/uL Absolute Neuts (auto) 6.3 (2.0-8.3) x10*3/uL Absolute Nucleated RBC 0.000 (0.0-0.012) X10*3/uL Nucleated RBC % (auto) 0.0 (0.0-0.2) /100WBC Sodium 143 (135-145) mmol/L Potassium 4.3 (3.3-5.1) mmol/L Chloride 103 (96-108) mmol/L Carbon Dioxide 26 (22-29) mmol/L Anion Gap 18 (12-20) BUN 12 (9-16) mg/dL Creatinine 0.99 (0.5-1.4) mg/dL Estim Creat Clear Calc 55.6 Estimated GFR 58 Random Glucose 126 H (60-115) mg/dL Calcium 10.6 H D (8.4-10.2) mg/dL Total Bilirubin 1.2 H (0.0-1.0) mg/dL Direct Bilirubin 0.4 (0.0-0.5) mg/dL AST 43 H (5-31) U/L ALT 57 H (0-31) U/L Alkaline Phosphatase 143 H D (39-117) U/L Total Protein 8.4 H (6.5-8.0) g/dL Albumin 5.0 D (3.5-5.0) g/dL Lipase 24 (8-78) U/L Discharge Plan Discharge Clinical Impression: Chest wall muscle strain Qualifiers: Encounter type: initial encounter Qualified Code(s): S29.011A - Strain of muscle and tendon of front wall of thorax, initial encounter Patient Disposition: Home, Self-Care Instructions: Chest Wall Pain (ED) Additional Instructions: Your laboratory evaluation was unremarkable. Your presentation and exam is consistent with a muscle strain of your chest wall. Take Tylenol (acetaminophen) 325 mg pills, 2 pills every 4 to 6 hours as needed for pain. Apply ice for 15 minute 4 to 6 times a day. After you ice your chest wall then apply heating pad on low 4 to 6 times a day. Sometimes the combination of ice followed by heat is better than either 1 of the treatments by itself. Follow-up with your doctor in 2 days. Please return to the emergency department if your symptoms get worse or if you develop any symptoms that are concerning to you. Prescriptions: No Action cyclobenzaprine 10 mg tablet 10 mg PO TID PRN (Reason: pain, muscle spasm) Qty: 15 0RF metoprolol succinate 25 mg tablet extended release 24 hr 25 mg PO DAILY fluticasone propionate 50 mcg/actuation spray,suspension intranasal fexofenadine 180 mg tablet 180 mg PO DAILY atorvastatin 80 mg tablet 80 mg PO DAILY aspirin 81 mg tablet,delayed release (DR/EC) 81 mg PO DAILY
[2022-01-22 23:42] VITALS: BP 147/85; PULSE 75; RESP 14; O2SAT 98
== END 2022-01-22 23:49 | disposition home or self-care (01) ==
PROVIDERS: Emergency Provider Emergency Medicine Emergency Medical Services; PCP Internal Medicine
DX: R10.9 Unspecified abdominal pain (principal); R07.89 Other chest pain; Z79.899 Other long term (current) drug therapy
CPT/HCPCS: 36415; 80048; 80076; 83690; 85025; 99283; 99284

== ENCOUNTER 2022-03-05 11:53 | Outpatient (REF) | payer OTHER, SELFPAY ==
[2022-03-05 12:39] LABS: Influenza A PCR NEGATIVE (Negative); Influenza B PCR NEGATIVE (Negative); Resp Syncy Virus RNA Qual PCR NEGATIVE (Negative); SARS COV2 PCR INHOUSE NEGATIVE (Negative)
== END 2022-03-05 11:54 | disposition home or self-care (01) ==
LOC: HO.LNP 11:53
PROVIDERS: Visit Provider Emergency Medicine
DX: Z20.822 Contact with and (suspected) exposure to COVID-19 (principal); R68.89 Other general symptoms and signs
CPT/HCPCS: 0241U

== ENCOUNTER 2022-03-14 07:14 | Emergency (ER) | payer OTHER, SELFPAY ==
[2022-03-14 07:17] VITALS: BP 138/90; PULSE 100; RESP 19; TEMP 36.6; O2SAT 99; BMI 27.3
[2022-03-14 08:10] LABS: Influenza A PCR NEGATIVE (Negative); Influenza B PCR NEGATIVE (Negative); Resp Syncy Virus RNA Qual PCR NEGATIVE (Negative); SARS COV2 PCR INHOUSE NEGATIVE (Negative)
--- NOTE | 2022-03-14 09:34 | ED.GENADULT ---
HPI - General Adult General Chief complaint: Fever Stated complaint: FLU+ 03/08/Fever Time Seen by Provider: 03/14/22 08:16 Source: patient Mode of arrival: ambulatory Limitations: no limitations History of Present Illness HPI narrative: 57-year-old female presents to ED for body aches, fever, and chills for the past 2 days. Patient denies any coughing, chest pain, shortness of breath, sore throat, ear pain, photophobia, neck stiffness, or headache. Patient denies any rash, watery eyes. Related Data Home Medications Medication Instructions Recorded Confirmed aspirin 81 mg tablet,delayed 81 mg PO DAILY 02/14/20 02/25/22 release atorvastatin 80 mg tablet 80 mg PO DAILY 02/14/20 02/25/22 fexofenadine 180 mg tablet 180 mg PO DAILY 02/14/20 02/25/22 fluticasone propionate 50 spray intranasal 02/14/20 02/25/22 mcg/actuation nasal spray,suspension metoprolol succinate 25 mg 25 mg PO DAILY 02/14/20 02/25/22 tablet,extended release 24 hr Previous Rx's Medication Instructions Recorded cyclobenzaprine 10 mg tablet 10 mg PO TID PRN pain, muscle 10/20/20 spasm #15 tabs Allergies Allergy/AdvReac Type Severity Reaction Status Date / Time cabbage Allergy Severe HIVES Verified 03/15/22 03:41 lorazepam [Ativan] Allergy Severe Swelling Verified 03/15/22 03:41 peanut [PEANUT] Allergy Unknown HIVES Verified 03/15/22 03:41 SEAFOOD Allergy Severe DIFFICULTY Uncoded 03/15/22 03:41 BREATHING Review of Systems Review of Systems: Fever body aches Yes all other systems are reviewed and are negative PMFSH Past Medical History Medical History Coronary artery dissection Ischemic cardiomyopathy Palpitations Surgical History H/O tubal ligation H/O: hysterectomy S/P CABG x 2 Family History Family History Father Diabetes Hypertension Cirrhosis Mother Hypertension Arthritis Osteoporosis FHx: mental illness Social History Social History Alcohol intake: current Alcohol intake frequency: a few times a month Alcohol type: wine Patient Tobacco Use Status: Never used Tobacco Advance Directives: No Advance Directives Information Provided: No Physical Exam ED Vital Signs: Vital Signs - 24 hr 03/14/22 07:17 Temperature 98 F Pulse Rate 100 Respiratory Rate 19 Blood Pressure 138/90 H Pulse Oximetry 99 Oxygen Delivery Method Room Air BMI result Body Mass Index 27.3 Const General: cooperative, healthy appearing, comfortable, no acute distress, well developed, alert, awake and Physically active Orientation/consciousness: oriented to person, oriented to place, oriented to time and patient oriented x3 HENMT Head: Yes normal to inspection, Yes No palpable skull fracture present, Yes normocephalic, Yes atraumatic and No abrasion Ears: hearing grossly normal bilaterally, external ears normal, TM's normal bilaterally, EAC's normal, mastoids normal and no periauricular adenopathy General nose exam: Normal external nose present and Normal nares present Face and sinus: Yes normal facial exam and Yes sinuses nontender Mouth: Normal oral and palatal mucosa present, lip normal and tongue normal Teeth and gingiva: dentition normal and gingiva normal Throat: Yes posterior oropharynx normal, Yes tonsils normal and Yes uvula midline Eyes General: appearance normal, both eyes and all related structures Neck Neck: Yes normal visual inspection, Yes full ROM, Yes no lymphadenopathy, Yes no meningeal signs, Yes trachea midline, Yes supple, No anterior neck swelling and No tender Chest Chest palpation & inspection: normal inspection of the chest and normal palpation of entire chest wall Resp Effort & Inspection: normal respiratory effort and able to speak in complete sentences Auscultation: clear to auscultation bilaterally Cardio Jugular venous distension: no JVD Heart sounds: S1 normal heart sound present and S2 normal heart sound present GI Inspection: Yes normal to inspection and No abdominal wall ecchymosis Palpation (GI): Soft to palpation, not firm, nontender, no guarding and not rigid General: No CVA tenderness and Yes no CVA tenderness Back/Spine/Pelvis Back: no CVA tenderness, No CVA tenderness and No back tenderness Skin General skin exam: no rashes or lesions noted and elasticity normal Neuro General: oriented to person, oriented to place, oriented to time, patient oriented x3, gait normal, tone normal, no meningeal signs, no focal motor deficits and CN's II-XI intact bilaterally Extrem General: Yes normal to inspection and Yes full ROM Psych Appearance: grossly normal, well kempt and not disheveled Course Course Course Narrative: 57-year-old female with fever and body aches for a couple of days. SARS ordered. Medical Decision Making Medical Decision Making [facility] Narrative: 57-year-old female with past medical history is hypertension presents to ED to for fever and body aches. No coughing chest pain, shortness of breath, headache, neck stiffness, photophobia, abdominal pain, dysuria, hematuria, flank pain, sore throat, or ear pain. SARs ordered. No admission considered or observation considered Differential Diagnosis Differential Diagnoses: The differential diagnosis associated with the presentation includes (COVID, RSV, and influenza.) Consult Healthcare Provider New consultation needed. Lab Data [facility] Lab Attestation statement: I reviewed the patient's lab results. (SARs ordered) Labs: Lab Results 03/14/22 Range/Units 07:24 Influenza Type A (PCR) NEGATIVE (Negative) Influenza Type B (PCR) NEGATIVE (Negative) RSV RNA Qual (PCR) NEGATIVE (Negative) SARS-CoV-2 RNA (RT-PCR) NEGATIVE (Negative) Radiology Impression Radiologist Impression: No radiology needed Discharge Plan Discharge Clinical Impression: Acute viral syndrome Patient Disposition: Home, Self-Care Instructions: Viral Syndrome (ED) Additional Instructions: SARs, COVID, and RSV came back negative. Continue taking Tylenol and Motrin [id number] for pain and fever relief. Return to the ED immediately for any chest pain, shortness of breath, coughing, abdominal pain, headache, neck stiffness, light bothered eyes, dysuria, hematuria, flank pain, diarrhea, or any other concerning symptoms. Please follow-up with primary care provider Prescriptions: No Action cyclobenzaprine 10 mg tablet 10 mg PO TID PRN (Reason: pain, muscle spasm) Qty: 15 0RF metoprolol succinate 25 mg tablet extended release 24 hr 25 mg PO DAILY fluticasone propionate 50 mcg/actuation spray,suspension intranasal fexofenadine 180 mg tablet 180 mg PO DAILY atorvastatin 80 mg tablet 80 mg PO DAILY aspirin 81 mg tablet,delayed release (DR/EC) 81 mg PO DAILY Stand Alone Forms: Work/School Release Interventions: ED Discharge Assessment Last Done: 03/14/22 09:58 Discharge Date/Time: 03/14/22 09:58 Print Language: Hungarian
== END 2022-03-14 09:58 | disposition home or self-care (01) ==
PROVIDERS: Emergency Provider Emergency Medicine; PCP Internal Medicine
DX: B34.9 Viral infection, unspecified (principal); R50.9 Fever, unspecified; Z20.822 Contact with and (suspected) exposure to COVID-19; Z79.899 Other long term (current) drug therapy
CPT/HCPCS: 0241U; 99282

== ENCOUNTER 2022-03-15 03:33 | Emergency (ER) | payer OTHER, SELFPAY ==
[2022-03-15 03:41] VITALS: BP 116/59; PULSE 98; RESP 18; TEMP 37.4; O2SAT 95; BMI 27.3
[2022-03-15 04:40] LABS: Basophils Percent Auto 0.8 % (0-2); Eosinophils Absolute Auto 0.1 X10*3/uL (0.0-0.4); Eosinophils Percent Auto 1.2 % (0-4); Hematocrit 40.5 % (37.0-47.0); Hemoglobin 13.6 g/dl (12.0-16.0); Imm Gran Abs Auto 0.03 X10*3/uL (0.00-0.03); Imm Gran Pct Auto 0.6 % (0.0-0.4); Lymphocytes Absolute Auto 1.5 X10*3/uL (1.2-4.9); Lymphocytes Percent Auto 30.5 % (20-40); Mean Corpuscular HGB Conc 33.6 g/dl (31.0-35.0); Mean Corpuscular Hemoglobin 29.8 pg (27.0-33.0); Mean Corpuscular Volume 88.8 fL (80.0-98.0); Mean Platelet Volume 9.6 fL (9.4-12.3); Monocytes Absolute Auto 0.4 X10*3/uL (0.1-1.2); Neutrophils Absolute Auto 2.9 x10*3/uL (2.0-8.3); Neutrophils Percent Auto 58.9 % (45-73); Platelet Count 195 X10*3/uL (160-400); Red Blood Count 4.56 X10*6/uL (4.20-5.50); Red Cell Distribution Width 12.6 % (11.0-16.0); SCAN SMEAR FLAG 1
[2022-03-15 04:57] LABS: Alanine Aminotransferase 99 U/L (0-31); Albumin Level 3.9 g/dL (3.5-5.0); Alkaline Phosphatase 164 U/L (39-117); Anion Gap 14 (12-20); Aspartate Amino Transferase 65 U/L (5-31); Bilirubin Total 0.8 mg/dL (0.0-1.0); Blood Urea Nitrogen 10 mg/dL (9-16); Calcium 8.7 mg/dL (8.4-10.2); Carbon Dioxide 25 mmol/L (22-29); Chloride 102 mmol/L (96-108); Creatinine Clr Calc Pharmacy 74.8; Estimated Glomerular Filt Rate > 60; Glucose Random 119 mg/dL (60-115); Sodium 137 mmol/L (135-145)
[2022-03-15 04:58] LABS: MANUAL DIFF FLAG SCAN
[2022-03-15 04:59] LABS: SLIDE REVIEW VERIFIED
[2022-03-15 05:14] VITALS: BP 115/89; PULSE 87; RESP 16; TEMP 37.2; O2SAT 99
--- NOTE | 2022-03-15 06:33 | ED.GENADULT ---
HPI - General Adult General Chief complaint: Skin/Abscess/Foreign Body Stated complaint: spots? on legs, not itchy or swollen Time Seen by Provider: 03/15/22 05:03 Source: patient Mode of arrival: ambulatory History of Present Illness HPI narrative: 57-year-old female presents with having recently recovered from the influenza virus and in states that this morning she woke up she had all these little red spots on bilateral lower extremities only on the anterior aspect and this is not been associated with exposure to new lotions, clothing and patient denies any recent medication changes or use of antibiotics. Patient denies any pain or itchiness associated with this. Related Data Home Medications Medication Instructions Recorded Confirmed aspirin 81 mg tablet,delayed 81 mg PO DAILY 02/14/20 02/25/22 release atorvastatin 80 mg tablet 80 mg PO DAILY 02/14/20 02/25/22 fexofenadine 180 mg tablet 180 mg PO DAILY 02/14/20 02/25/22 fluticasone propionate 50 spray intranasal 02/14/20 02/25/22 mcg/actuation nasal spray,suspension metoprolol succinate 25 mg 25 mg PO DAILY 02/14/20 02/25/22 tablet,extended release 24 hr Previous Rx's Medication Instructions Recorded cyclobenzaprine 10 mg tablet 10 mg PO TID PRN pain, muscle 10/20/20 spasm #15 tabs Allergies Allergy/AdvReac Type Severity Reaction Status Date / Time cabbage Allergy Severe HIVES Verified 03/15/22 03:41 lorazepam [Ativan] Allergy Severe Swelling Verified 03/15/22 03:41 peanut [PEANUT] Allergy Unknown HIVES Verified 03/15/22 03:41 SEAFOOD Allergy Severe DIFFICULTY Uncoded 03/15/22 03:41 BREATHING Review of Systems Review of Systems: Pertinent positives and negatives as stated in HPI 10 point review of systems is otherwise negative. PMFSH Past Medical History Source: nursing notes reviewed Medical History Coronary artery dissection Ischemic cardiomyopathy Palpitations Surgical History H/O tubal ligation H/O: hysterectomy S/P CABG x 2 Family History Family History Father Diabetes Hypertension Cirrhosis Mother Hypertension Arthritis Osteoporosis FHx: mental illness Social History Social History Alcohol intake: current Alcohol intake frequency: a few times a month Alcohol type: wine Patient Tobacco Use Status: Never used Tobacco Advance Directives: No Advance Directives Information Provided: No Physical Exam ED Vital Signs: Vital Signs - 24 hr 03/15/22 03:41 03/15/22 05:14 Temperature 99.3 F 98.9 F Pulse Rate 98 87 Respiratory Rate 18 16 Blood Pressure 116/59 L 115/89 Pulse Oximetry 95 99 Oxygen Delivery Method Room Air Room Air BMI result Body Mass Index 27.3 VITAL SIGNS: Reviewed. GENERAL: Well developed, well nourished, in no acute distress. HEAD: Normocephalic/atraumatic EYES: PERRLA, EOMI EARS: Ext canals without abnormality OROPHARYNX: no oral lesions noted, posterior pharynx clear LUNGS: Normal breath sounds. No adventitious sounds or accessory muscle use. SpO2<> CARDIOVASCULAR: Regular rate and rhythm without noted murmurs. ABDOMEN: Soft, non-tender, non-distended with bowel sounds. MUSCULOSKELETAL: No tenderness, deformities, or effusions noted on gross inspection. EXTREMITIES: No cyanosis, clubbing or edema; BILATERAL LOWER EXTREMITIES: There is scattered petechiae to the anterior aspect of bilateral lower extremities it does not extend to the posterior and is not noted to be on either upper extremity.. SKIN: Inspection of the skin reveals no rashes, ulcerations, jaundice, pallor, or petechiae. NEUROLOGIC: Alert and oriented x 4. Strength and sensation to light touch were grossly intact x 4. Course Course Course Narrative: This is a 57-year-old female with history and clinical presentation of petechiae, no injuries reported and no new medications. Review of basic lab work negative for acute findings such as anemia, thrombocytopenia and patient is not on any anticoagulation. All results discussed with her at bedside as well as presumptively reassuring the patient that this is likely a viral related finding. Medical Decision Making Lab Data Result Diagrams: 03/15/22 04:35 03/15/22 04:35 Labs: Lab Results 03/15/22 03/15/22 Range/Units 04:35 04:35 WBC 5.0 (4.8-10.8) X10*3/uL RBC 4.56 (4.20-5.50) X10*6/uL Hgb 13.6 (12.0-16.0) g/dl Hct 40.5 (37.0-47.0) % MCV 88.8 (80.0-98.0) fL MCH 29.8 (27.0-33.0) pg MCHC 33.6 (31.0-35.0) g/dl RDW 12.6 (11.0-16.0) % Plt Count 195 D (160-400) X10*3/uL MPV 9.6 (9.4-12.3) fL Immature Gran % (Auto) 0.6 H (0.0-0.4) % Neut % (Auto) 58.9 (45-73) % Lymph % (Auto) 30.5 (20-40) % [place] % (Auto) 8.0 (2-11) % Eos % (Auto) 1.2 (0-4) % Baso % (Auto) 0.8 (0-2) % Lymph # (Auto) 1.5 (1.2-4.9) X10*3/uL [place] # (Auto) 0.4 (0.1-1.2) X10*3/uL Eos # (Auto) 0.1 (0.0-0.4) X10*3/uL Baso # (Auto) 0.0 (0.0-0.2) X10*3/uL Abs Immat Gran (auto) 0.03 (0.00-0.03) X10*3/uL Absolute Neuts (auto) 2.9 (2.0-8.3) x10*3/uL Absolute Nucleated RBC 0.000 (0.0-0.012) X10*3/uL Nucleated RBC % (auto) 0.0 (0.0-0.2) /100WBC Smear Tech's Comments VERIFIED Sodium 137 (135-145) mmol/L Potassium 4.0 (3.3-5.1) mmol/L Chloride 102 (96-108) mmol/L Carbon Dioxide 25 (22-29) mmol/L Anion Gap 14 (12-20) BUN 10 (9-16) mg/dL Creatinine 0.72 (0.5-1.4) mg/dL Estim Creat Clear Calc 74.8 Estimated GFR > 60 Random Glucose 119 H (60-115) mg/dL Calcium 8.7 D (8.4-10.2) mg/dL Total Bilirubin 0.8 (0.0-1.0) mg/dL AST 65 H (5-31) U/L ALT 99 H (0-31) U/L Alkaline Phosphatase 164 H (39-117) U/L Total Protein 7.0 (6.5-8.0) g/dL Albumin 3.9 (3.5-5.0) g/dL Discharge Plan Discharge Clinical Impression: Petechiae Patient Disposition: Home, Self-Care Instructions: Ecchymosis (ED) Additional Instructions: 1. Resume all home medications as prescribed. 2. Follow-up with your primary care provider by calling the office today and setting up an appointment for re-evaluation. Return to the ER for worsening symptoms. Prescriptions: No Action cyclobenzaprine 10 mg tablet 10 mg PO TID PRN (Reason: pain, muscle spasm) Qty: 15 0RF metoprolol succinate 25 mg tablet extended release 24 hr 25 mg PO DAILY fluticasone propionate 50 mcg/actuation spray,suspension intranasal fexofenadine 180 mg tablet 180 mg PO DAILY atorvastatin 80 mg tablet 80 mg PO DAILY aspirin 81 mg tablet,delayed release (DR/EC) 81 mg PO DAILY Referrals: Matthew Howard III, MD [Primary Care Provider] -
== END 2022-03-15 06:44 | disposition home or self-care (01) ==
PROVIDERS: Emergency Provider Student in an Organized Health Care Education/Training Program; PCP Internal Medicine
DX: R23.3 Spontaneous ecchymoses (principal); Z79.899 Other long term (current) drug therapy
CPT/HCPCS: 36415; 80053; 85025; 99283

== ENCOUNTER 2022-09-11 07:36 | Outpatient (REF) | payer OTHER, SELFPAY ==
--- NOTE | ~2022-09-11 | MM_ITS ---
EXAMINATION: MM SCREENING DIGITAL BREAST TOMOSYNTHESIS, BILATERAL CLINICAL INFORMATION: Screening. Asymptomatic. The lifetime risk of breast cancer based on the Tyrer-Cuzick Model is 5%. COMPARISON: Mammography: 09/05/2021, 09/08/2020, 08/18/2019, 06/18/2019; outside mammography 06/12/2018 ([place]); left breast ultrasound 09/08/2020. TECHNIQUE: Digital breast tomosynthesis is performed in both the craniocaudal and mediolateral oblique views along with computer-aided detection (CAD). Synthesized 2D images are generated from the tomosynthesis. FINDINGS: There are scattered areas of fibroglandular density (ACR BI-RADS breast composition Category b). There are no significant masses, abnormal calcifications, or other abnormalities. Parenchymal pattern is similar to prior studies. There is no developing density or architectural abnormality. The axilla and skin contours are unremarkable. No significant changes. MM/MM tomosynthesis screening BI IMPRESSION: No mammographic evidence of malignancy. ASSESSMENT: BI-RADS 1: Negative RECOMMENDATION: Routine annual mammography screening. This patient's information was entered into a reminder system with a target due date for their next mammogram.
== END 2022-09-11 07:37 | disposition home or self-care (01) ==
LOC: HO.MAMMO 07:36
PROVIDERS: Visit Provider Internal Medicine
DX: Z12.31 Encounter for screening mammogram for malignant neoplasm of breast (principal)
CPT/HCPCS: 77063; 77067

== ENCOUNTER 2022-10-09 11:54 | Outpatient (AMB) | payer OTHER, SELFPAY ==
--- NOTE | 2022-10-09 11:56 | MHC.OFFWIV ---
Intake Vital Signs 10/09/22 11:57 Height 5 ft 1 in BP 120/74 Blood Pressure Location Lt brachial Position Sitting Pulse 73 Pulse Source Pulse Oximeter Temp 98.6 F Pulse Oximetry (%) 99 Oxygen Delivery Method Room Air Intake Visit Reasons: EP vertigo? ([place]) Intake Note: pt is here for c/o vertigo Patient Tobacco Use Status: Never used Tobacco Allergies cabbage Allergy (Severe, Verified 10/09/22 12:08) HIVES lorazepam [Ativan] Allergy (Severe, Verified 10/09/22 12:08) Swelling peanut [PEANUT] Allergy (Unknown, Verified 10/09/22 12:08) HIVES SEAFOOD Allergy (Severe, Uncoded 03/15/22 03:41) DIFFICULTY BREATHING Medication List - Last Reconciled 10/09/22 by Humble Schmid PA-C aspirin 81 mg PO DAILY atorvastatin 80 mg PO DAILY cyclobenzaprine 10 mg PO TID PRN fexofenadine 180 mg PO DAILY fluticasone propionate 50 mcg/actuation sprays intranasal metoprolol succinate ER 25 mg PO DAILY Do you need a note to return to daycare/school/sports/work: No HPI EP vertigo? ([place]) HPI Details Patient is a 57-year-old female here today complaining of vertigo over the lart 6 hours. She has a past medical history significant for ischemic cardiomyopathy, coronary artery disease status post CABG, hypertension and allergic rhinitis. REports when she changes her head movements she felt very dizzy. Otherwise denies any chest discomfort, shortness of breath, dizziness at rest or shortness of breath on exertion. PFSH Medical History Coronary artery dissection Ischemic cardiomyopathy Palpitations Surgical History H/O tubal ligation H/O: hysterectomy S/P CABG x 2 Family History Father Diabetes Hypertension Cirrhosis Mother Hypertension Arthritis Osteoporosis FHx: mental illness Social History Alcohol intake: current Alcohol intake frequency: a few times a month Alcohol type: wine Patient Tobacco Use Status: Never used Tobacco Review of Systems Const Denies headache(s) Eyes Denies loss of vision ENT Reports vertigo, Reports dizziness, Denies headache(s) and Denies sore throat Card Denies chest pain, Denies leg edema and Denies lightheadedness Resp Denies cough, Denies hemoptysis and Denies wheezing GI Denies abdominal pain, Denies melena, Denies constipation, Denies diarrhea and Denies vomiting Denies urinary frequency, Denies dysuria and Denies urinary urgency Musc Denies arthralgias, Denies joint swelling, Denies numbness and Denies tingling Neuro Denies Abnormal speech present, Denies behavioral changes, Reports vertigo, Reports dizziness, Denies headache(s), Denies loss of vision, Denies memory loss, Denies numbness and Denies tingling Psych Denies anxiety, Denies behavioral changes, Denies depression, Denies memory loss and Denies panic attacks Andrew/Lymph Denies easy bleeding and Denies easy bruising Aller/Immun Denies wheezing Physical Exam Vital Signs: Last Vital Signs Temp 98.6 F 10/09/22 11:57 Pulse 73 10/09/22 11:57 BP 120/74 10/09/22 11:57 Pulse Ox 99 10/09/22 11:57 Oxygen Delivery Method Room Air 10/09/22 11:57 Const General: healthy appearing, no acute distress, alert and awake Nutritional Appearance: well nourished Orientation/consciousness: oriented to person, oriented to place and oriented to time HEENT Other: POSITIVE DIZZINESS/NYSTAGMUS WHEN LYING DOWN FLAT TURNING HEAD TO THE RIGHT, Ears: TM's normal bilaterally General nose exam: Normal nasal mucous membranes and turbinates present Eyes Conjunctivae: conjunctivae normal Sclerae: sclerae normal Pupils: Equal, round and reactive pupils present Neck Neck: Yes no lymphadenopathy and Yes no JVD Thyroid: Thyroid normal Carotids: no bruits Resp Effort & Inspection: normal respiratory effort and not tachypneic Auscultation: no crackles, no rales, no rhonchi and no wheezes Cardio Rate: regular rate Rhythm: regular rhythm Heart sounds: no murmurs and normal S1 and S2 GI Palpation (GI): Soft to palpation, nontender, no hepatomegaly and no splenomegaly Auscultation: normal bowel sounds Skin General skin exam: no rashes or lesions noted and dry skin Neuro General: oriented to person, oriented to place and oriented to time Cranial nerves: Yes Equal, round and reactive pupils present Speech: No Abnormal speech present Gait exam (Neuro): Normal gait present Motor exam (neuro): no tremor noted Extrem Right upper extremity: full ROM Left upper extremity: full ROM Right lower extremity: full ROM; no edema Left lower extremity: full ROM; no edema Psych Mental Status: mental status grossly normal Speech and movement: Normal speech and movement present Affect: normal affect Attitude: cooperative Thought process: Normal thought process present Assessment & Plan Assessment & Plan (1) BPPV (benign paroxysmal positional vertigo): Code(s): H81.10 - Benign paroxysmal vertigo, unspecified ear Qualifiers: Laterality: right Qualified Code(s): H81.11 - Benign paroxysmal vertigo, right ear Plan: Patient's signs and symptoms most consistent with benign. To small positional vertigo. Did have positive Cam-Hallpike on right side today in office. Will supply patient with meclizine to use on a p.r.n. basis. Advised on Monica maneuvers to be done at home to help reduce her vertigo. Medications: New meclizine 12.5 mg PO TID 7 days PRN 21 tabs 0RF dizziness H81.11 - Benign paroxysmal vertigo, right ear Coding Level of Care Code Est Pt Level 3 (73719) Diagnoses BPPV (benign paroxysmal positional vertigo) H81.11 Laterality: right
[2022-10-09 11:57] VITALS: BP 120/74; PULSE 73; TEMP 37; O2SAT 99
== END 2022-10-09 12:26 | disposition home or self-care (01) ==
PROVIDERS: PCP Internal Medicine; Visit Provider Physician Assistant
DX: H81.11 Benign paroxysmal vertigo, right ear (principal)
CPT/HCPCS: 99051; 99213

== ENCOUNTER 2022-11-03 14:45 | Outpatient (AMB) | payer OTHER, SELFPAY ==
--- NOTE | 2022-11-03 14:51 | MHC.OFFVIS ---
Intake Vital Signs 11/03/22 14:52 Height 5 ft 1 in Weight 120 lb 13.013 oz BMI 22.8 BP 110/78 Blood Pressure Location Lt brachial Position Sitting Pulse 71 Pulse Source Monitor Intake Visit Reasons: 6 mth f/up Intake Note: 6 month follow up with EKG. Senior Sales Compensation Analyst Required: No Accompanied by: Self / Same As Patient Allergies cabbage Allergy (Severe, Verified 11/03/22 14:54) HIVES lorazepam [Ativan] Allergy (Severe, Verified 11/03/22 14:54) Swelling peanut [PEANUT] Allergy (Unknown, Verified 11/03/22 14:54) HIVES SEAFOOD Allergy (Severe, Uncoded 11/03/22 14:54) DIFFICULTY BREATHING Medication List - Last Reconciled 11/03/22 by Alli Crespo MD aspirin 81 mg PO DAILY atorvastatin 80 mg PO DAILY cyclobenzaprine 10 mg PO TID PRN fexofenadine 180 mg PO DAILY fluticasone propionate 50 mcg/actuation sprays intranasal meclizine 12.5 mg PO TID PRN 7 days metoprolol succinate ER 25 mg PO DAILY HPI HPI Comments History of Present Illness Details Pleasant 57-year-old female here for history of previous myocardial infarction. In 2011 she [address] with [address]-elevation RI. She had arm pain and chest pressure that time. She was taken for cardiac catheterization by Dr. Romo was found to have a spontaneous coronary artery dissection of the right coronary artery. It was attempted to perform PCI but it was unsuccessful. She was emergently sent for 2 vessel bypass surgery with vein graft to RV marginal and vein graft to PDA. She subsequent to that some Dr. Isaiah Angulo. Recently her insurance changed and she was referred to us. Her EF has been 40%. EKG showing sinus rhythm, inferior Q-waves. Subsequently she had repeat echocardiogram performed which showed EF of 50 55%. She also had a stress test done which showed basal and mid inferior scar with no reversible ischemia in the past. 11/03/22: Returns for follow-up. EKG in the office is showing sinus rhythm at 71 beats per minute, normal axis, nonspecific T-wave changes in the inferior leads and lateral leads. QTC is 439 milliseconds. She has exercise and lost some weight. She is denying any chest discomfort shortness of breath. Taking medications regularly and tolerating them well. [facility] Medical History Coronary artery dissection Ischemic cardiomyopathy Palpitations Surgical History H/O tubal ligation H/O: hysterectomy S/P CABG x 2 Family History Father Diabetes Hypertension Cirrhosis Mother Hypertension Arthritis Osteoporosis FHx: mental illness Social History Alcohol intake: current Alcohol intake frequency: a few times a month Alcohol type: wine Patient Tobacco Use Status: Never used Tobacco Review of Systems Const Denies weakness ENT Denies dizziness Card Denies chest pain, Denies chest pain with activity, Denies syncope, Denies rapid heart rate, Denies pedal edema, Denies edema, Denies leg edema, Denies lightheadedness, Denies palpitations, Denies dyspnea, Denies dyspnea on exertion and Denies orthopnea Resp Denies cough, Denies dyspnea and Denies dyspnea on exertion GI Denies hematochezia and Denies change in stool character Musc Denies abnormal gait, Denies muscle cramps, Denies muscle weakness, Denies numbness, Denies radiating pain into limb and Denies tingling Neuro Denies abnormal gait, Denies dizziness, Denies syncope, Denies numbness, Denies tingling and Denies weakness Endo Denies palpitations Physical Exam Vital Signs: Last Vital Signs Pulse 71 11/03/22 14:52 BP 110/78 11/03/22 14:52 BMI result Body Mass Index 22.8 GENERAL APPEARANCE: in no acute distress, pleasant. NECK: no carotid bruit, no jugular venous distention. SKIN: no suspicious lesions, warm and dry. HEART: no murmurs, regular rate and rhythm. LUNGS: clear to auscultation bilaterally. ABDOMEN: soft, nontender. EXTREMITIES: no edema. PERIPHERAL PULSES: equal. NEUROLOGIC: No gross deficits, AAO X 3 Office Procedures EKG Details: sinus rhythm at 71 beats per minute, normal axis, nonspecific T-wave changes in the inferior leads and lateral leads. QTC is 439 milliseconds. [id number], Complete Assessment & Plan Assessment & Plan (1) Ischemic cardiomyopathy: Code(s): I25.5 - Ischemic cardiomyopathy (2) Palpitations: Code(s): R00.2 - Palpitations (3) Coronary artery dissection: Code(s): I25.42 - Coronary artery dissection Plan Very pleasant 57-year-old female here for follow-up. She has background of coronary artery bypass surgery for coronary artery dissection. She had 2 bypasses placed. Stress testing in the past has shown basal inferior mid inferior infarct without any reversible ischemia. She is not endorsing any ischemic symptoms at this point. Taking medications regularly. Blood pressure control is good. I think she should stay on beta-casey long-term. Follow-up in 6 months. Thank you for allowing me to participate in the care of your patient. Please feel free to contact me if you have any questions. Coding Level of Care Code Est Pt Level 4 (79101) Diagnoses Ischemic cardiomyopathy I25.5 Palpitations R00.2 Coronary artery dissection I25.42 CPT Codes EKG - CPT: 25668-[id number], Complete ([id number])
[2022-11-03 14:52] VITALS: BP 110/78; PULSE 71; BMI 22.8
== END 2022-11-03 15:07 | disposition home or self-care (01) ==
PROVIDERS: PCP Internal Medicine; Referring Provider Internal Medicine; Visit Provider Internal Medicine Cardiovascular Disease
DX: I25.5 Ischemic cardiomyopathy (principal); R00.2 Palpitations; I25.42 Coronary artery dissection
CPT/HCPCS: 93010; 99214

== ENCOUNTER → 2022-11-03 14:45 | Outpatient (BNVA) | payer OTHER, SELFPAY | PROVIDERS: PCP Internal Medicine; Referring Provider Internal Medicine; Visit Provider Internal Medicine Cardiovascular Disease | DX: I25.42 Coronary artery dissection (principal); I25.5 Ischemic cardiomyopathy; I10 Essential (primary) hypertension; R00.2 Palpitations; Z98.890 Other specified postprocedural states; Z95.1 Presence of aortocoronary bypass graft | CPT/HCPCS: 93005 ==

== ENCOUNTER 2023-02-04 08:03 | Outpatient (AMB) | payer OTHER, SELFPAY ==
--- NOTE | 2023-02-04 08:05 | MHC.OFFWIV ---
Intake Vital Signs 02/04/23 08:12 BP 120/82 Blood Pressure Location Rt brachial Position Sitting Pulse 79 Pulse Source Pulse Oximeter Temp 98.3 F Temp Source Oral Pulse Oximetry (%) 99 Oxygen Delivery Method Room Air Intake Visit Reasons: EST/dizziness(lobby) Intake Note: Patient here for dizziness, feeling off since this morning. Patient Tobacco Use Status: Never used Tobacco Allergies cabbage Allergy (Severe, Verified 02/04/23 08:12) HIVES lorazepam [Ativan] Allergy (Severe, Verified 02/04/23 08:12) Swelling peanut [PEANUT] Allergy (Unknown, Verified 02/04/23 08:12) HIVES SEAFOOD Allergy (Severe, Uncoded 02/04/23 08:12) DIFFICULTY BREATHING Do you need a note to return to daycare/school/sports/work: No HPI HPI Comments History of Present Illness Details This is a 57-year-old female who presents to the office today for sick visit. Patient complaining of dizziness upon waking up. Patient states she was in her usual state of health when she went to bed last night, but she woke up this morning with some mild dizziness, which she describes as feeling ?off balance?. She states she has a history of vertigo in her symptoms feel slightly similar to her prior episode; however, her prior episodes were more of a room spinning sensation. She states she tried some of the nel maneuvers with moderate improvement in her symptoms. She denies any slurred speech, facial asymmetry, visual disturbances, or numbness/weakness/paresthesias of extremities. She denies any chest pain, shortness of breath, or palpitations. She denies any abdominal pain or nausea/vomiting/diarrhea. [facility] Medical History Coronary artery dissection Ischemic cardiomyopathy Palpitations Surgical History H/O tubal ligation H/O: hysterectomy S/P CABG x 2 Family History Father Diabetes Hypertension Cirrhosis Mother Hypertension Arthritis Osteoporosis FHx: mental illness Social History Alcohol intake: current Alcohol intake frequency: a few times a month Alcohol type: wine Patient Tobacco Use Status: Never used Tobacco Review of Systems Const All systems reviewed & are unremarkable except as noted in HPI and below Reports no additional complaints Eyes Reports no additional complaints ENT Reports no additional complaints Card Reports no additional complaints Resp Reports no additional complaints GI Reports no additional complaints Reports no additional complaints Musc Reports no additional complaints Skin/Breast Reports system reviewed and no additional complaints, except as documented Neuro Reports no additional complaints Psych Reports no additional complaints Endo Reports no additional complaints Andrew/Lymph Reports no additional complaints Aller/Immun Reports no additional complaints Physical Exam Vital Signs: Last Vital Signs Temp 98.3 F 02/04/23 08:12 Pulse 79 02/04/23 08:12 BP 120/82 02/04/23 08:12 Pulse Ox 99 02/04/23 08:12 Oxygen Delivery Method Room Air 02/04/23 08:12 Const Other: Vital signs reviewed. Constitutional: Non-toxic appearing. No acute distress. Well-developed and well-nourished. HEENT: Normocephalic and atraumatic. Tympanic membranes without erythema, edema, or bulging bilaterally. External auditory canals without erythema or edema bilaterally. Moist mucous membranes. No pharyngeal erythema or exudates. Skin: Warm and dry. No rashes or lesions noted. Neck: Full and painless range of motion. No cervical lymphadenopathy. Cardio: Regular rate and rhythm. No murmurs, gallops, or rubs. No lower extremity edema. No JVD. Pulmonary: No respiratory distress. No accessory muscle usage. Clear to auscultation bilaterally without wheezing, crackles, or rhonchi. Gastrointestinal: Soft, nontender, and nondistended in all 4 quadrants. Normoactive bowel sounds in all 4 quadrants. Genitourinary: No CVA tenderness. Musculoskeletal: Normal range of motion in joints throughout the body. No deformity or other signs of injury. Neuro: Alert and oriented x4. Cranial nerves 2-12 grossly intact. No focal deficits appreciated. Psych: Normal mood and affect. Assessment & Plan Assessment & Plan (1) BPPV (benign paroxysmal positional vertigo): Code(s): H81.10 - Benign paroxysmal vertigo, unspecified ear Qualifiers: Laterality: right Qualified Code(s): H81.11 - Benign paroxysmal vertigo, right ear Plan This is a 57-year-old female with past medical history significant for coronary artery disease status post CABG x2 and ischemic cardiomyopathy who presented to the office complaining of dizziness and a sense of being ?off balance?. History and physical most consistent with vertigo. I explained to the patient that I cannot definitively rule out a posterior circulation CVA given no CT or MRI give abilities. Patient is completely neurologically intact and her blood pressure is within normal limits so have very low suspicion for CVA. Really doubt a cardiac etiology such as an arrhythmia, acute coronary syndrome, or acute congestive heart failure given no chest pain, shortness of breath, or ACS equivalent symptoms and no evidence of volume overload. Patient's vital signs are stable, she is overall nontoxic appearing, and her physical exam is completely benign. Patient feels safe with discharge home. I recommended symptomatic management including Enl maneuvers, rest, increased hydration, and p.o. meclizine as needed for dizziness. Patient was advised to proceed directly to the emergency room if she were to develop any concerning neurological symptoms as explained above. Patient verbalizes her understanding and she is in agreement with the plan. Coding Level of Care Code Est Pt Level 3 (52541) Diagnoses Benign paroxysmal positional vertigo of right ear H81.11 Laterality: right
[2023-02-04 08:12] VITALS: BP 120/82; PULSE 79; TEMP 36.8; O2SAT 99
== END 2023-02-04 08:57 | disposition home or self-care (01) ==
PROVIDERS: PCP Internal Medicine; Visit Provider Physician Assistant Medical
DX: H81.11 Benign paroxysmal vertigo, right ear (principal)
CPT/HCPCS: 99213

== ENCOUNTER 2023-07-14 08:30 | Outpatient (REF) | payer OTHER, SELFPAY ==
[2023-07-14 11:30] LABS: Influenza A PCR NEGATIVE (Negative); Influenza B PCR NEGATIVE (Negative); Resp Syncy Virus RNA Qual PCR NEGATIVE (Negative); SARS COV2 PCR INHOUSE NEGATIVE (Negative)
== END 2023-07-14 08:31 | disposition home or self-care (01) ==
LOC: HO.CHCLNP 08:30
PROVIDERS: Visit Provider Nurse Practitioner Primary Care
DX: Z11.52 Encounter for screening for COVID-19 (principal); J06.9 Acute upper respiratory infection, unspecified
CPT/HCPCS: 0241U

== ENCOUNTER 2023-07-14 08:30 | Outpatient (AMB) | payer OTHER, SELFPAY ==
[2023-07-14 08:30] VITALS: BP 124/72; PULSE 87; TEMP 36.6; O2SAT 99; BMI 24.6
--- NOTE | 2023-07-14 08:30 | AM.OFFWIN_ITS ---
Intake Vital Signs 07/14/23 08:30 Height 5 ft 1 in Weight 130 lb BMI 24.6 BP 124/72 Blood Pressure Location Lt brachial Position Sitting Pulse 87 Pulse Source Pulse Oximeter Temp 97.9 F Temp Source Temporal Artery Scan Pulse Oximetry (%) 99 Oxygen Delivery Method Room Air Intake Visit Reasons: EP Cough, loss of voice Intake Note: pt is here today for cough loss of voice started Patient Tobacco Use Status: Never used Tobacco Allergies cabbage Allergy (Severe, Verified 07/14/23 08:33) HIVES lorazepam [Ativan] Allergy (Severe, Verified 07/14/23 08:33) Swelling peanut [PEANUT] Allergy (Unknown, Verified 07/14/23 08:33) HIVES SEAFOOD Allergy (Severe, Uncoded 02/04/23 08:12) DIFFICULTY BREATHING Do you need a note to return to daycare/school/sports/work: No HPI HPI Comments History of Present Illness Details Patient is a 58-year-old female in today for sick visit. She has a past medical history significant for BPPV and [place]. patient has been experiencing sore throat, cough, hoarse voice for the past 4 days. Patient does not utilize over the counter medicines due to risk with myocardial infarction history. Has been utilizing hot tea with mild effect. Patient denies chest pain, shortness a breath, headache, nausea, vomiting, dizziness. Will obtain a URI swab. Will obtain strep swab. [facility] Medical History Coronary artery dissection Ischemic cardiomyopathy Palpitations Surgical History H/O tubal ligation H/O: hysterectomy S/P CABG x 2 Family History Father Diabetes Hypertension Cirrhosis Mother Hypertension Arthritis Osteoporosis FHx: mental illness Social History Alcohol intake: current Alcohol intake frequency: a few times a month Alcohol type: wine Patient Tobacco Use Status: Never used Tobacco Review of Systems Const All systems reviewed & are unremarkable except as noted in HPI and below Physical Exam Vital Signs: Last Vital Signs Temp 97.9 F 07/14/23 08:30 Pulse 87 07/14/23 08:30 BP 124/72 07/14/23 08:30 Pulse Ox 99 07/14/23 08:30 Oxygen Delivery Method Room Air 07/14/23 08:30 BMI result Body Mass Index 24.6 Vital signs reviewed stable. Const Other: Appearance: Alert.? Oriented X3.? No acute distress.? Head: Normocephalic, atraumatic, no step-offs or deformities ENT: Pharynx Erythema and cobblestone. +Post nasal drip. No tonsilar exudate. Neck: Normal inspection.? Neck supple.? CVS: Normal heart rate and rhythm.? Pulses normal.? Respiratory: No respiratory distress.? Breath sounds normal.? Neuro: Oriented X 3.? No motor deficit.? No sensory deficit. CN 2-12 intact Results AMB Rapid Strep AMB Rapid Strep Negative Last Edit by Henrry Dumont CMA on 07/14/23 08 :49 Results Reviewed Results Reviewed: Laboratory Last Values Strep Scn [facility] Negative 07/14/23 08:48 Assessment & Plan Assessment & Plan (1) Upper respiratory infection: Comment: Strep test was negative. Patient likely has upper respiratory infection. Exacerbated by postnasal drip. Patient has been instructed to use Flonase, will give benzonatate for cough. Patient has taken benzonatate before with no interactions in good effect. Patient has also been instructed to drink plenty of water continue with warm water gargle and hot tea. Code(s): J06.9 - Acute upper respiratory infection, unspecified Qualifiers: URI type: unspecified URI Qualified Code(s): J06.9 - Acute upper respiratory infection, unspecified Plan: Take your medications as prescribed. If you were prescribed antibiotics today, it is important that you take your medication to their entirety, do not skip any doses, do not finish them early. Follow-up with your primary care provider this week. Return to the emergency department with new or worsening symptoms. Such as fevers, chills, chest pain, shortness of breath, nausea, vomiting, dizziness, headache, vision changes, lethargy In case of emergency call 911 Plan Follow-up with PCP Orders: Orders SARS-CoV2/FLU/RSV Today J06.9 - Acute upper respiratory infection, unspecified AMB Rapid Strep Screen Today Z13.9 - Encounter for screening, unspecified Medications: New benzonatate 100 mg PO BID-TID PRN 20 caps 0RF cough Coding Level of Care Code Est Pt Level 3 (17026) Diagnoses Upper respiratory tract infection, unspecified type J06.9 URI type: unspecified URI Time Spent (min) 22
== END 2023-07-14 09:11 | disposition home or self-care (01) ==
PROVIDERS: PCP Internal Medicine; Visit Provider Nurse Practitioner Primary Care
DX: Z13.9 Encounter for screening, unspecified (principal); J06.9 Acute upper respiratory infection, unspecified
CPT/HCPCS: 87880; 99213

== ENCOUNTER 2023-08-02 14:59 | Outpatient (AMB) | payer OTHER, SELFPAY ==
[2023-08-02 15:10] VITALS: BP 130/80; PULSE 75; BMI 24.6
--- NOTE | 2023-08-02 15:10 | MHC.OFFVIS ---
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: No Allergies cabbage Allergy (Severe, Verified 08/02/23 15:12) HIVES lorazepam [Ativan] Allergy (Severe, Verified 08/02/23 15:12) Swelling peanut [PEANUT] Allergy (Unknown, Verified 08/02/23 15:12) HIVES SEAFOOD Allergy (Severe, Uncoded 08/02/23 15:12) DIFFICULTY BREATHING Medication List - Last Reconciled 08/02/23 by Elham White NP-C aspirin 81 mg PO DAILY atorvastatin 80 mg PO DAILY fexofenadine 180 mg PO DAILY fluticasone propionate 50 mcg/actuation sprays intranasal metoprolol succinate ER 25 mg PO DAILY HPI HPI rs 6 month f/u: Details: aKty is a 58-year-old female with past medical history of hyperlipidemia, inferior STEMI with attempted PCI, coronary dissection resulting in 2 vessel Coronary artery bypass grafting 11/2011, ischemic cardiomyopathy, who presents for follow-up. Today she reports that she has been feeling well with no concerning symptoms.? She denies any anginal symptoms. No shortness of breath, dizziness, presyncope, syncope, PND, orthopnea or edema.? She is not noticing any concerning palpitations. No sustained rapid or irregular heartbeats.? Taking all medications as directed.? Remains active with walking. [facility] Medical History Ischemic cardiomyopathy Palpitations Coronary artery dissection Surgical History H/O tubal ligation H/O: hysterectomy S/P CABG x 2 Family History Father Diabetes Hypertension Cirrhosis Mother Hypertension Arthritis Osteoporosis FHx: mental illness Social History Alcohol intake: current Alcohol intake frequency: a few times a month Alcohol type: wine Patient Tobacco Use Status: Never used Tobacco Review of Systems Const All systems reviewed & are unremarkable except as noted in HPI and below ENT Denies dizziness Card Denies chest pain, Denies chest pain at rest, Denies chest pain with activity, Denies rapid heart rate, Denies pedal edema, Denies edema, Denies leg edema, Denies lightheadedness, Denies palpitations, Denies dyspnea, Denies dyspnea on exertion and Denies orthopnea Resp Denies cough, Denies dyspnea and Denies dyspnea on exertion GI Denies hematochezia and Denies change in stool character Musc Denies abnormal gait, Denies limited range of motion, Denies muscle cramps, Denies muscle weakness, Denies numbness, Denies radiating pain into limb, Denies stiffness and Denies tingling Neuro Denies abnormal gait, Denies dizziness, Denies numbness and Denies tingling Endo Denies palpitations Physical Exam Vital Signs: Last Vital Signs Pulse 75 08/02/23 15:10 BP 130/80 08/02/23 15:10 BMI result Body Mass Index 24.6 Const General: cooperative, healthy appearing, comfortable and no acute distress Orientation/consciousness: patient oriented x3 Neck Neck: Yes normal visual inspection and Yes no JVD Resp Effort & Inspection: normal respiratory effort Auscultation: clear to auscultation bilaterally, no crackles, no rales, no rhonchi and no wheezes Cardio Jugular venous distension: no JVD Rate: regular rate Rhythm: regular rhythm Heart sounds: S1 normal heart sound present, S2 normal heart sound present, no murmurs and no rubs Neuro General: patient oriented x3 Extrem General: Yes normal to inspection Psych Appearance: grossly normal Mental Status: mental status grossly normal Speech and movement: Normal speech and movement present Assessment & Plan Assessment & Plan (1) Coronary artery dissection: Code(s): I25.42 - Coronary artery dissection Category: Medical Plan: History of inferior STEMI with spontaneous coronary dissection resulting in emergent Coronary artery bypass grafting, 2 vessel with vein graft to the RV marginal and to the PDA. Residual ischemic cardiomyopathy with prior EF 40%. It has been approximately 12 years since her surgery. She underwent cardiac testing with Echocardiogram done 09/04/2021 shows EF 50-55%, no regional wall motion abnormalities. A nuclear stress test done on 09/17/2021 shows no ischemia, transmural infarct of the basal inferior wall and nontransmural mid inferior wall in the RCA territory. EKG done today shows sinus rhythm with evidence of inferior infarct, inferior T-wave abnormality, rate 74, QTC 435 milliseconds. Today she reports feeling well with no anginal sounding symptoms. She has good activity tolerance. Will continue medical management for stable CAD including aspirin, high-dose atorvastatin, metoprolol. Her labs are followed by her PCP. She has an upcoming physical/labs with PCP. Will request that those labs be faxed to our office at [phone]. Cardiology follow-up in 1 year sooner if needed. Emergency care if needed for symptoms. (2) S/P CABG x 2: Comment: 11/2011, vein graft to the RV marginal and PDA Code(s): Z95.1 - Presence of aortocoronary bypass graft Category: Surgical (3) Abnormal EKG: Code(s): R94.31 - Abnormal electrocardiogram [ECG] [EKG] Category: Medical Plan: As above. Inferior [place] (4) Ischemic cardiomyopathy: Code(s): I25.5 - Ischemic cardiomyopathy Category: Medical Plan: EF improved to 50- 55%. On exam she has no clinical signs indicating congestive heart failure. Signs and symptoms of heart failure reviewed with her. Plan Time spent on chart review, documentation, interview and assessment Coding Level of Care Code Est Pt Level 4 (05606) Diagnoses Coronary artery dissection I25.42 S/P CABG x 2 Z95.1 Abnormal EKG R94.31 Ischemic cardiomyopathy I25.5 Time Spent (min) 28
== END 2023-08-02 15:16 | disposition home or self-care (01) ==
PROVIDERS: PCP Internal Medicine; Visit Provider Nurse Practitioner Family
DX: I25.42 Coronary artery dissection (principal); Z95.1 Presence of aortocoronary bypass graft; R94.31 Abnormal electrocardiogram [ECG] [EKG]; I25.5 Ischemic cardiomyopathy
CPT/HCPCS: 99214

== ENCOUNTER → 2023-08-02 14:59 | Outpatient (BNVA) | payer OTHER, SELFPAY | PROVIDERS: PCP Internal Medicine; Visit Provider Nurse Practitioner Family ==

== ENCOUNTER 2023-09-17 07:45 | Outpatient (REF) | payer OTHER, SELFPAY | END 2023-09-17 07:46 | disposition home or self-care (01) | LOC: HO.MAMMO 07:45 | PROVIDERS: PCP Internal Medicine; Visit Provider Internal Medicine | DX: Z12.31 Encounter for screening mammogram for malignant neoplasm of breast (principal) | CPT/HCPCS: 77063; 77067 ==

== ENCOUNTER → 2023-09-17 07:51 | Outpatient (BNV) | payer OTHER, SELFPAY | PROVIDERS: PCP Internal Medicine; Visit Provider Radiology Diagnostic Radiology | DX: Z12.31 Encounter for screening mammogram for malignant neoplasm of breast (principal) | CPT/HCPCS: 77063; 77067 ==

== ENCOUNTER 2023-12-15 08:38 | Outpatient (AMB) | payer OTHER, SELFPAY ==
[2023-12-15 09:23] VITALS: BP 118/62; PULSE 67; BMI 24.9
--- NOTE | 2023-12-15 09:23 | A.OFFVIS_ITS ---
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 Allergies cabbage Allergy (Severe, Verified 12/15/23 09:25) HIVES lorazepam [Ativan] Allergy (Severe, Verified 12/15/23 09:25) Swelling peanut [PEANUT] Allergy (Unknown, Verified 12/15/23 09:25) HIVES SEAFOOD Allergy (Severe, Uncoded 12/15/23 09:25) DIFFICULTY BREATHING Medication List - Last Reconciled 12/15/23 by Elham White NP-C aspirin 81 mg PO DAILY atorvastatin 80 mg PO DAILY fexofenadine 180 mg PO DAILY fluticasone propionate 50 mcg/actuation sprays intranasal metoprolol succinate ER 25 mg PO DAILY HPI HPI palpitations: Details: Katy is a 58-year-old female with past medical history of hyperlipidemia, inferior STEMI with attempted PCI, coronary dissection resulting in 2 vessel Coronary artery bypass grafting 11/2011, ischemic cardiomyopathy, who presents for follow-up. Today she reports that she has recently had a few episodes of brief heart palpitations. She said it feels like her heart is going fast for a few seconds. No associated symptoms. She has had no change to her medications or general health. This is causing her much anxiety and she is tearful at this visit. She denies any anginal symptoms. No shortness of breath, dizziness, presyncope, syncope, PND, orthopnea or edema.? Taking all medications as directed.? Remains active with walking. [facility] Medical History Ischemic cardiomyopathy Palpitations Coronary artery dissection Surgical History H/O tubal ligation H/O: hysterectomy S/P CABG x 2 Family History Father Diabetes Hypertension Cirrhosis Mother Hypertension Arthritis Osteoporosis FHx: mental illness Social History Alcohol intake: current Alcohol intake frequency: a few times a month Alcohol type: wine Patient Tobacco Use Status: Never used Tobacco Review of Systems Const All systems reviewed & are unremarkable except as noted in HPI and below ENT Denies dizziness Card Denies chest pain, Denies chest pain at rest, Denies chest pain with activity, Denies rapid heart rate, Denies pedal edema, Denies edema, Denies leg edema, Denies lightheadedness, Reports palpitations, Denies dyspnea, Denies dyspnea on exertion and Denies orthopnea Resp Denies cough, Denies dyspnea and Denies dyspnea on exertion GI Denies hematochezia and Denies change in stool character Musc Denies abnormal gait, Denies limited range of motion, Denies muscle cramps, Denies muscle weakness, Denies numbness, Denies radiating pain into limb, Denies stiffness and Denies tingling Neuro Denies abnormal gait, Denies dizziness, Denies numbness and Denies tingling Endo Reports palpitations Physical Exam Vital Signs: BMI result Body Mass Index 24.9 Const General: cooperative, healthy appearing, comfortable and no acute distress Orientation/consciousness: patient oriented x3 Neck Neck: Yes normal visual inspection Resp Effort & Inspection: normal respiratory effort Auscultation: clear to auscultation bilaterally, no crackles, no rales, no rhonchi and no wheezes Cardio Jugular venous distension: no JVD Rate: regular rate Rhythm: regular rhythm Heart sounds: S1 normal heart sound present, S2 normal heart sound present, no murmurs and no rubs Neuro General: patient oriented x3 Extrem General: Yes normal to inspection, No no pedal edema and No calf tenderness Psych Appearance: grossly normal Mental Status: mental status grossly normal Speech and movement: Normal speech and movement present Office Procedures EKG Details: Today, read by me, normal sinus rhythm, T-wave abnormalities inferior lateral leads, unchanged from prior EKG, rate 67, QTC 426 milliseconds [id number], Complete Assessment & Plan Assessment & Plan (1) Palpitations: Code(s): R00.2 - Palpitations Category: Medical Plan: Report of heart palpitations where she feels her heart beating fast for a few se conds and then it resolves. This is a newer feeling for her. She denies associated symptoms and no known triggers. It is causing her much anxiety about her heart. EKG done today shows normal sinus rhythm with T-wave abnormality in the inferior lateral leads, unchanged from prior EKG, rate 67. She continues on metoprolol XL 25 mg daily. Will check a Holter monitor to evaluate for any concerning arrhythmia. Emergency care if needed for sustained rapid or irregular rates. Plan to call her with test results. At present will keep her cardiology follow-up for next spring. (2) Coronary artery dissection: Code(s): I25.42 - Coronary artery dissection Category: Medical Plan: History of inferior STEMI with spontaneous coronary dissection resulting in emergent Coronary artery bypass grafting, 2 vessel with vein graft to the RV marginal and to the PDA. Residual ischemic cardiomyopathy with prior EF 40%. It has been approximately 12 years since her surgery. She underwent cardiac testing with Echocardiogram done 09/04/2021 shows EF 50-55%, no regional wall motion abnormalities. A nuclear stress test done on 09/17/2021 shows no ischemia, transmural infarct of the basal inferior wall and nontransmural mid inferior wall in the RCA territory. EKG done today shows sinus rhythm with evidence of inferior infarct, inferior T-wave abnormality, rate 74, QTC 435 milliseconds. Today she reports no anginal sounding symptoms. Will continue medical management for stable CAD including aspirin, high-dose atorvastatin, metoprolol. Will reach out to PCP office to obtain labs. (3) S/P CABG x 2: Comment: 11/2011, vein graft to the RV marginal and PDA Code(s): Z95.1 - Presence of aortocoronary bypass graft Category: Surgical Plan: As above (4) Abnormal EKG: Code(s): R94.31 - Abnormal electrocardiogram [ECG] [EKG] Category: Medical Plan: As above. Inferior [place] (5) Ischemic cardiomyopathy: Code(s): I25.5 - Ischemic cardiomyopathy Category: Medical Plan: EF improved to 50- 55%. On exam she has no clinical signs indicating congestive heart failure. Signs and symptoms of heart failure reviewed with her. Plan Time spent on chart review, documentation, interview and assessment Orders: Orders ECG 5 day holter monitor Today I25.5 - Ischemic cardiomyopathy, R00.2 - Palpitations Coding Level of Care Code Est Pt Level 4 (23972) Diagnoses Palpitations R00.2 Coronary artery dissection I25.42 S/P CABG x 2 Z95.1 Abnormal EKG R94.31 Ischemic cardiomyopathy I25.5 CPT Codes EKG - CPT: [id number], Complete ([id number]) Time Spent (min) 28
== END 2023-12-15 09:45 | disposition home or self-care (01) ==
PROVIDERS: PCP Internal Medicine; Visit Provider Nurse Practitioner Family
DX: R00.2 Palpitations (principal); I25.42 Coronary artery dissection; Z95.1 Presence of aortocoronary bypass graft; R94.31 Abnormal electrocardiogram [ECG] [EKG]; I25.5 Ischemic cardiomyopathy
CPT/HCPCS: 93010; 99214

== ENCOUNTER → 2023-12-15 08:38 | Outpatient (BNVA) | payer OTHER, SELFPAY | PROVIDERS: PCP Internal Medicine; Visit Provider Nurse Practitioner Family | DX: R00.2 Palpitations (principal); I25.42 Coronary artery dissection; R94.31 Abnormal electrocardiogram [ECG] [EKG]; I25.5 Ischemic cardiomyopathy; I25.2 Old myocardial infarction; Z79.899 Other long term (current) drug therapy; Z95.1 Presence of aortocoronary bypass graft | CPT/HCPCS: 93005 ==

== ENCOUNTER → 2023-12-19 13:20 | Outpatient (REF) | payer OTHER, SELFPAY ==
--- NOTE | 2023-12-19 13:23 | HM_ITS ---
* Total monitoring time 4 days. * Underlying rhythm is sinus with an average rate of 69/Min. * Rare supraventricular and ventricular ectopy. * No significant pauses or high-grade AV blocks. * Patient markers used in association with supraventricular and ventricular ectopy. * Palpitations in patient diary correlates with supraventricular and ventricular ectopy. MTDD
== END ==
LOC: HO.CARD 13:20
PROVIDERS: PCP Internal Medicine; Visit Provider Nurse Practitioner Family
DX: R00.2 Palpitations (principal); I25.5 Ischemic cardiomyopathy
CPT/HCPCS: 93242

== ENCOUNTER → 2023-12-19 13:23 | Outpatient (BNV) | payer OTHER, SELFPAY | PROVIDERS: PCP Internal Medicine; Visit Provider Internal Medicine | DX: I47.10 Supraventricular tachycardia, unspecified (principal) | CPT/HCPCS: 93244 ==

== ENCOUNTER 2024-04-27 11:33 | Outpatient (REF) | payer OTHER, SELFPAY ==
--- OUTSIDE RECORDS SUMMARY | 2024-04-27 12:41 | XMS_ITS | Clinical Summary ---
Author Organization [facility] [address] [facility] Address [address] [place] [phone] Phone Care Team Providers Care Assistant Counsel Name Role Phone Matthew Howard MD Primary Care Provider Allergies Active Allergy Reactions Criticality Noted Date [...] HISTORICAL TUBAL LIGATION PARTIAL HYSTERECTOMY 2009 PROCEDURE: [place] SUPRACERVICAL ABDL HYSTER W/WO RMVL TUBE OVARY; [...] 9:45 AM EST Office Visit Adult Medicine [address] [phone] Matthew Howard MD [address] [place] [phone] Health Maintenance Due Date Last Done Comments [...] Recently Relevant to Health Maintenance Care Teams Assistant Counsel Relationship Specialty Start Date End Date Matthew Howard MD [address] [place] [address] PCP - General 01/23/08
[2024-04-27 15:46] LABS: Influenza A PCR NEGATIVE (Negative); Influenza B PCR NEGATIVE (Negative); Resp Syncy Virus RNA Qual PCR NEGATIVE (Negative); SARS COV2 PCR INHOUSE NEGATIVE (Negative)
== END 2024-04-27 11:34 | disposition home or self-care (01) ==
LOC: HO.LAB 11:33
PROVIDERS: PCP Internal Medicine; Visit Provider Nurse Practitioner Family
DX: J06.9 Acute upper respiratory infection, unspecified (principal)
CPT/HCPCS: 0241U

== ENCOUNTER 2024-04-27 11:33 | Outpatient (AMB) | payer OTHER, SELFPAY ==
[2024-04-27 11:53] VITALS: BP 102/70; PULSE 86; RESP 16; TEMP 36.8; O2SAT 97
--- NOTE | 2024-04-27 11:53 | AM.OFFWIN_ITS ---
Intake Vital Signs 04/27/24 11:53 Height 5 ft 1 in BMI Reason not done Patient refused/unable BP 102/70 Blood Pressure Location Lt brachial Position Sitting Respiration 16 Pulse 86 Pulse Source Pulse Oximeter Temp 98.3 F Temp Source Oral Pulse Oximetry (%) 97 Oxygen Delivery Method Room Air Intake Visit Reasons: EP Sinus congestion Intake Note: Pt is here today c/o sinus congestion x3days and a cough Patient Tobacco Use Status: Never used Tobacco Allergies cabbage Allergy (Severe, Verified 04/27/24 11:54) HIVES lorazepam [Ativan] Allergy (Severe, Verified 04/27/24 11:54) Swelling peanut [PEANUT] Allergy (Unknown, Verified 04/27/24 11:54) HIVES SEAFOOD Allergy (Severe, Uncoded 04/27/24 11:54) DIFFICULTY BREATHING HPI HPI Comments History of Present Illness Details 59 y/o female patient who presents to [facility] walk in clinic with c/o URI symptoms x 3 days. Pt reports sinus congestion and cough. [facility] Medical History (Updated 04/27/24 @ 12:07 by Charity Lawler NP) Acute respiratory disease Ischemic cardiomyopathy Palpitations Coronary artery dissection Surgical History H/O tubal ligation H/O: hysterectomy S/P CABG x 2 Family History Father Diabetes Hypertension Cirrhosis Mother Hypertension Arthritis Osteoporosis FHx: mental illness Social History Alcohol intake: current Alcohol intake frequency: a few times a month Alcohol type: wine Patient Tobacco Use Status: Never used Tobacco Review of Systems Const All systems reviewed & are unremarkable except as noted in HPI and below Physical Exam Vital Signs: Last Vital Signs Temp 98.3 F 04/27/24 11:53 Pulse 86 04/27/24 11:53 Resp 16 04/27/24 11:53 BP 102/70 04/27/24 11:53 Pulse Ox 97 04/27/24 11:53 Oxygen Delivery Method Room Air 04/27/24 11:53 Const General: cooperative and comfortable Orientation/consciousness: patient oriented x3 HEENT Head: Yes normocephalic Ears: external ears normal and TM abnormal bulging bilateral and with fluid behi nd the TM bilateral General nose exam: Abnormal mucous membranes and turbinates present boggy and erythematous Face and sinus: Yes sinuses nontender Mouth: moist mucous membranes Throat: Yes uvula midline and Yes postnasal drainage Resp Effort & Inspection: normal respiratory effort and able to speak in complete sentences Auscultation: clear to auscultation bilaterally, no crackles, no rales, no rhonchi and no wheezes Cardio Heart sounds: S1 normal heart sound present and S2 normal heart sound present Neuro General: patient oriented x3 Assessment & Plan Assessment & Plan (1) Acute respiratory disease: Code(s): J06.9 - Acute upper respiratory infection, unspecified Plan: Ordered SARs Acetaminophen for pain relief OTC cough anc cold remedies. Orders: Orders SARS-CoV2/FLU/RSV Today J06.9 - Acute upper respiratory infection, unspecified Medications: New dextromethorphan polistirex ER ([facility] 12 hour) 10 mL PO Q12H 89 mL 0RF cough J06.9 - Acute upper respiratory infection, unspecified Coding Level of Care Code Est Pt Level 3 (04828) Diagnoses Acute respiratory disease J06.9 Time Spent (min) 15
--- OUTSIDE RECORDS SUMMARY | 2024-04-27 12:15 | XMS_ITS | Clinical Summary ---
Author Organization [facility] 444 [facility] Address [address] [place] [phone] Phone Care Team Providers Care Lumber Kiln Operator Name Role Phone Matthew Howard MD Primary Care Provider [phone] Allergies Active Allergy Reactions Criticality Noted Date Comments Lorazepam Swelling Low 11/20/2012 Medications Medication Sig Dispensed Refills Start Date End Date Status aspirin 81 mg EC tablet Take 1 Tab by mouth daily. 03/10/2020 Active atorvastatin (LIPITOR) 80 mg tablet Take 1 Tablet by mouth daily. 03/31/2023 Active vitamin E mixed 400 unit capsule TAKE 2 CAPSULES BY MOUTH DAILY 08/04/2023 Active imiquimod (ALDARA) 5 % cream Apply to affected area three times a week (every other day) at bedtime and wash off in the morning, for four weeks, can repeat for up to four months. 04/19/2022 Active fluticasone propionate (FLONASE) 50 mcg/actuation nasal spray USE 1 SPRAY IN EACH NOSTRIL ONCE DAILY 08/12/2022 Active fexofenadine (MIRELA) 180 mg tablet Take 1 Tablet by mouth daily. 08/24/2023 Active metoprolol succinate (TOPROL-XL) 25 mg 24 hr tablet TAKE 1 TABLET BY MOUTH DAILY 90 tablet 04/09/2024 Active metoprolol succinate (TOPROL-XL) 25 mg 24 hr tablet TAKE 1 TABLET BY MOUTH DAILY 10/04/2023 04/09/2024 Discontinued Active Problems Problem Noted Date Diagnosed Date Migraine 01/03/2024 Fatty liver 08/07/2020 Elevated LFTs 08/07/2020 Ischemic cardiomyopathy 08/13/2019 Pain and swelling of upper extremity 06/23/2015 Coronary artery disease 03/11/2012 Overview (01/03/2024): 2011 Condyloma acuminatum 06/28/2011 Allergic rhinitis 07/24/2008 Immunizations Name Administration Dates Next Due Influenza trivalent, with pr eservative (Fluzone; Afluria) 6mo and older 12/19/2019,12/28/2017,12/23/2016,12/22,12/22/2014,01/08/2014,12/19/2012 ,12/14/2010,01/09/2010,01/25/2008 Measles 10/20/2009 Mumps 09/05/2009 PPD Test 12/18/2010,12/11/2010 Pneumococcal polysaccharide 23 valent (Pneumovax 23) 2yo and older 02/13/2012 Td Tetanus diptheria (Tdvax) 7yo and older 10/27/2007 Tdap Tetanus diptheria acell ular pertussis (Boostrix; Adacel) 7yo and older 12/09/2010 Surgical History Surgery Date Site/Laterality Comments TUBAL LIGATION PROCEDURE: HISTORICAL TUBAL LIGATION PARTIAL HYSTERECTOMY 2009 PROCEDURE: [place] SUPRACERVICAL ABDL HYSTER W/WO RMVL TUBE OVARY; COMMENT: cervix and BOTH OVARIES REMAIN, done for fibroids and bleeding CORONARY ARTERY BYPASS GRAFT 01/27/2012 PROCEDURE: HISTORICAL CABG; COMMENT: double bypass COLONOSCOPY 08/13/2015 PROCEDURE: HISTORICAL COLONOSCOPY; COMMENT: Dr. Suárez; repeat in 10 years Medical History Medical History Date Comments Migraine DX:Migraine Fatty liver 08/07/2020 DX:Fatty liver Elevated LFTs 08/07/2020 DX:Elevated LFTs Fatty liver DX:Fatty liver Elevated liver enzymes DX:Elevat ed liver enzymes Viral illness DX:Viral illness Elevated cholesterol with el evated triglycerides DX:Elevated cholesterol with elevated triglycerides Family History Medical History Relation Name Comments Diabetes Brother x 2 asthma; aortic surgery Diabetes Father htn, cirrhosis (+EtOH) COPD Maternal Grandfather +smoker Heart attack Maternal Grandmother fatal Hypertension Mother osteoporosis, g astric cancer, seizure, dementia Other: unknown cancer Uncle maternal Relation Name Status Comments Brother x 2 Alive Father Maternal Grandfather Maternal Grandmother Mother Alive Paternal Grandfather Paternal Grandmother Sister x 1 Alive Uncle maternal Social History Tobacco Use Types Packs/Day Years Used Date Smoking Tobacco: Never Smokeless Tobacco: Never Alcohol Use Standard Drinks/Week Comments Yes 3 (1 standard drink = 0.6 oz pur e alcohol) Sex and Gender Information Value Date Recorded Sex Assigned at Not on file Gender Identity Not on file Sexual Orientation Not on file Job Start Date Occupation Industry Not on file Not on file Not on file Obstetrics History Last Filed Vital Signs Vital Sign Reading Time Taken Comments Blood Pressure 118/66 10/20/2023 3:14 PM EDT Pulse 72 10/20/2023 3:14 PM EDT Temperature - - Respiratory Rate - - Oxygen Saturation - - Inhaled Oxygen Concentration - - Weight 59.6 kg (131 lb 6.4 oz) 10/20/2023 3:14 P M EDT Height 154.9 cm (5' 1 ) 10/20/2023 3:14 PM EDT Body Mass Index 24.83 10/20/2023 3:14 PM EDT Plan of Treatment Upcoming Encounters Date Type Department Care Team (Late st Contact Info) Description 05/09/2024 9:45 AM EST Office Visit Adult Medicine [address] [phone] Matthew Howard MD [address] [place] [id number] Health Maintenance Due Date Last Done Comments Hepatitis B Vaccines (1 of 3 - 19+ 3-dose series) 02/29/1984 Pneumococcal Vaccine: Pediatrics (0 to 5 Years) and At-Risk Patients (6 to 64 Years) (2 of 2 - PCV) 02/12/2013 02/13/2012 Zoster Vaccines (1 of 2) 2015 Breast Cancer Screening 06/12/2020 06/13/19 19, 06/01/2017, 05/28/2016 DTaP,Tdap,and Td Vaccines (3 - Td or Tdap) 12/09/2020 12/09/2010, 10/27/2007 Depression Screening 03/06/2022 HIV Screening 03/06/2022 Hepatitis C Screening 03/06/2022 Social Influencers of Health Screening 03/06/2022 COVID-19 Vaccine ( season) 2023 Influenza Vaccine (#1) 2023 0, 12/28/2017, 12/23/2016, Additional history exists Hypertension/CHF/CAD Annual BMP Blood Test 08/10/2024 08/11/2023 Colorectal Cancer Screening: Colonoscopy 08/12/2025 08/13/2015 Cervical Cancer Screening: HPV 11/04/2025 11/04/2020 Cholesterol Screening (Lipid Panel) 08/10/2028 08/11/2023, 08/11/2023 RSV Immunization Patients 60+ Years Old (1 - 1-dose 75+ series) 02/29/2040 HIB Vaccines Aged Out No longer eligi ble based on patient's age to complete this topic HPV Vaccines Aged Out No longer eligi ble based on patient's age to complete this topic Hepatitis A Vaccines Aged Out No long er eligible based on patient's age to complete this topic IPV Vaccines Aged Out No longer eligi ble based on patient's age to complete this topic MMR Vaccines Aged Out No longer eligi ble based on patient's age to complete this topic Meningococcal ACWY Vaccine Aged Out N o longer eligible based on patient's age to complete this topic RSV Immunization Patients Under 20 months Aged Out No longer eligible based on patient's age to complete this topic Varicella Vaccines Aged Out No longer eligible based on patient's age to complete this topic Procedures Procedure Name Priority Date/Time Associated Diagnosis Comments LIPID PANEL Routine 08/11/2023 HPV Routine 11/04/2020 SCR MAMMO BI INCL CAD Routine 06/12/2018 2:22 PM EDT Encounter for screening mammogram for malignant neoplasm of breast COLONOSCOPY Routine 08/13/2015 from Last 3 Months or Most Recently Relevant to Health Maintenance Results * Lipid panel (08/11/2023) LDL/HDL Ratio 2 4 Triglycerides 137 0 - 150 mg/dL Cholesterol 100 0 - 200 mg/dL HDL 42 40 mg/dL LDL Cholesterol 31 0 - 100 mg/dL Blood Venous blood specimen / Unknown Historical Provider LAB BLOOD ORDERAB LES * Cervical Cancer Screening: HPV (11/04/2020) Cervical Cancer Screening: HPV No interpreta tion,abstr acted Historical Provider MD RADHA TREVINO E * SCR MAMMO BI INCL CAD (06/12/2018 2:22 PM EDT) Anatomical Region Laterality Modality Radiographic Sabrina ging 06/01/2017 1:04 PM EST Narrative 06/13/2018 10:49 AM EDT This is a summary report. The complete report is available in the patient's medical record. If you cannot access the medical record, please contact the sending organization for a detailed fax or copy. Full field digital screening mammography, reviewed with CAD and compared to previous. ??The breasts are composed of fatty and fibroglandular tissue. ??No suspicious mass, architectural distortion or suspicious calcifications are identified. IMPRESSION: : No mammographic evidence of malignancy. BIRADS 1-Negative; N. 5 year breast cancer risk assessment 0.5 % Lifetime breast cancer risk assessment 4.3 % Breast cancer risk category Low (<15%) Procedure Note Poncho Yates MD - 03/16/2022 This is a summary report. The complete report is available in thepatient's medical record. If you cannot access the medical record, pleasecontact the sending organization for a detailed fax or copy. Full field digital screening mammography, reviewed with CAD and comparedto previous. The breasts are composed of fatty and fibroglandular tissue.No suspicious mass, architectural distortion or suspicious calcificationsare identified. IMPRESSION: : No mammographic evidence of malignancy. BIRADS 1-Negative; N. 5 year breast cancer risk assessment 0.5 % Lifetime breast cancer risk assessment 4.3 % Breast cancer risk category Low (<15%) Matthew Howard MD IMG XR PROCEDURES * Colonoscopy (08/13/2015) Colonoscopy No interpreta tion,abstr acted Anatomical Region Laterality Modality Other Historical Provider MD RADHA Bradford from Last 3 Months or Most Recently Relevant to Health Maintenance Care Teams Lumber Kiln Operator Relationship Specialty Start Date End Date Matthew Howard MD [address] [place] [address] PCP - General 01/23/08
== END 2024-04-27 12:24 | disposition home or self-care (01) ==
PROVIDERS: PCP Internal Medicine; Visit Provider Nurse Practitioner Family
DX: J06.9 Acute upper respiratory infection, unspecified (principal)

== ENCOUNTER 2024-08-21 21:53 | Emergency (ER) | payer OTHER, SELFPAY ==
[2024-08-21 21:55] VITALS: BP 138/68; PULSE 94; RESP 16; TEMP 36.1; O2SAT 99; BMI 26.4
--- NOTE | 2024-08-21 21:59 | ECG_ITS ---
Test Reason : DIZZINESS Blood Pressure : */* mmHG Vent. Rate : 82 BPM Atrial Rate : 82 BPM P-R Int : 140 ms QRS Dur : 94 ms QT Int : 400 ms P-R-T Axes : 60 24 92 degrees QTcB Int : 467 ms Normal sinus rhythm Inferior infarct , age undetermined Abnormal ECG No previous ECGs available Referred By: Generic ED Physician Electronically Signed By: ADRIANA BALDWIN MD
[2024-08-21 22:43] LABS: MANUAL DIFF FLAG NO
[2024-08-21 22:55] LABS: Basophils Absolute Auto 0.1 X10*3/uL (0.0-0.2); Basophils Percent Auto 0.9 % (0-2); Eosinophils Absolute Auto 0.3 X10*3/uL (0.0-0.4); Eosinophils Percent Auto 3.2 % (0-4); Hemoglobin 14.7 g/dl (12.0-16.0); Imm Gran Abs Auto 0.02 X10*3/uL (0.00-0.03); Imm Gran Pct Auto 0.3 % (0.0-0.4); Lymphocytes Percent Auto 50.8 % (20-40); Mean Corpuscular HGB Conc 33.4 g/dl (31.0-35.0); Mean Corpuscular Hemoglobin 30.2 pg (27.0-33.0); Mean Corpuscular Volume 90.5 fL (80.0-98.0); Mean Platelet Volume 9.1 fL (9.4-12.3); Monocytes Absolute Auto 0.6 X10*3/uL (0.1-1.2); Monocytes Percent Auto 7.8 % (2-11); Neutrophils Absolute Auto 2.9 x10*3/uL (2.0-8.3); Platelet Count 254 X10*3/uL (160-400); Red Blood Count 4.86 X10*6/uL (4.20-5.50); Red Cell Distribution Width 13.2 % (11.0-16.0); White Blood Count 7.8 X10*3/uL (4.8-10.8)
[2024-08-21 22:56] LABS: Anion Gap 11 (12-20); Blood Urea Nitrogen 12 mg/dL (9-16); Calcium 9.4 mg/dL (8.4-10.2); Carbon Dioxide 25 mmol/L (22-29); Chloride 109 mmol/L (96-108); Creatinine Clr Calc Pharmacy 65.5; Estimated Glomerular Filt Rate > 60; Glucose Random 128 mg/dL (60-115); Sodium 141 mmol/L (135-145)
[2024-08-21 23:20] LABS: Influenza A PCR NEGATIVE (Negative); Influenza B PCR NEGATIVE (Negative); Resp Syncy Virus RNA Qual PCR NEGATIVE (Negative); SARS COV2 PCR INHOUSE NEGATIVE (Negative)
[2024-08-22 01:33] VITALS: BP 148/73; PULSE 77; RESP 18; TEMP 36.3; O2SAT 98
--- NOTE | 2024-08-22 02:49 | PC.NURSE ---
pt a&o, reports dizziness is better, ortho's ordered, awaiting to be seen by provider.
[2024-08-22 02:53] VITALS: BP 160/70; BP 162/70; PULSE 70; PULSE 72
[2024-08-22 02:54] VITALS: BP 152/71; PULSE 82
[2024-08-22 05:11] VITALS: BP 152/71; PULSE 82; RESP 16; TEMP 36.3; O2SAT 98
--- NOTE | 2024-10-15 10:17 | ED.DIZZY ---
HPI - Dizziness General Chief Complaint: Dizziness Stated Complaint: Vertigo Source: patient Mode of arrival: ambulatory Limitations: no limitations History of Present Illness ED Provider: Dr. Ender Willson HPI Narrative: Please note that this note is being documented on 10/15/2024 and is the document for the ED visit on 08/21/2024 with triage time 21:55 hours. I am unable to find/open the document pertaining to this date of service. 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 The patient states that this morning she was in bed and reached for her phone and then noted that the room was spinning. The patient had nausea but no vomiting. She states that if she stays still her symptoms resolved completely. She states that with minimal movement of her head the symptoms recur. she states that she was diagnosed with vertigo approximately 1 year prior and her symptoms were similar at that time. She denied fever, chills, chest pain, shortness of breath, abdominal pain, change in bowel movements, frequency, urgency or dysuria. Related Data Home Medications ?Medication ?Instructions ?Recorded ?Confirmed aspirin 81 mg tablet,delayed 81 mg PO DAILY 02/14/20 12/15/23 release atorvastatin 80 mg tablet 80 mg PO DAILY 02/14/20 12/15/23 fexofenadine 180 mg tablet 180 mg PO DAILY 02/14/20 12/15/23 fluticasone propionate 50 spray intranasal 02/14/20 12/15/23 mcg/actuation nasal spray,suspension metoprolol succinate 25 mg 25 mg PO DAILY 02/14/20 12/15/23 tablet,extended release 24 hr Previous Rx's ?Medication ?Instructions ?Recorded ipratropium bromide 21 mcg (0.03 2 spray intranasal BID-TID PRN 08/31/24 %) nasal spray allergy symptoms #30 mL albuterol sulfate 90 mcg/actuation 2 puff inhalation Q6H PRN 09/18/24 aerosol inhaler shortness of breath or wheezing or cough #8.5 grams prednisone 20 mg tablet 40 mg (2 x 20 mg) PO DAILY 5 days 09/18/24 #10 tabs benzonatate 100 mg capsule 100 mg PO bid-tid PRN Cough #20 09/19/24 caps Allergies Allergy/AdvReac Type Severity Reaction Status Date / Time cabbage Allergy Severe HIVES Verified 09/18/24 13:57 lorazepam (Ativan) Allergy Severe Swelling Verified 09/18/24 13:57 peanut (PEANUT) Allergy Unknown HIVES Verified 09/18/24 13:57 SEAFOOD Allergy Severe DIFFICULTY Uncoded 08/31/24 08:16 BREATHING Review of Systems Review of Systems: Yes all other systems are reviewed and are negative [facility] Past Medical History [facility] Narrative: social history: She denies tobacco use. She states she occasionally drinks alcohol. She denies drug use. Medical History (Updated 09/18/24 @ 14:26 by Laila Real PA-C) Acute respiratory disease Ischemic cardiomyopathy Palpitations Coronary artery dissection Surgical History H/O tubal ligation H/O: hysterectomy S/P CABG x 2 Family History Family History Father Diabetes Hypertension Cirrhosis Mother Hypertension Arthritis Osteoporosis FHx: mental illness Social History Social History Alcohol intake: current Alcohol intake frequency: does not drink Alcohol type: wine Patient Tobacco Use Status: Never used Tobacco Physical Exam Vital Signs: Vital Signs: Last Vital Signs Temp 97.4 F 08/22/24 05:11 Pulse 82 08/22/24 05:11 Resp 16 08/22/24 05:11 BP 152/71 H 08/22/24 05:11 Pulse Ox 98 08/22/24 05:11 O2 Del Method Room Air 08/22/24 05:11 BMI result Body Mass Index 26.4 initial vital signs were normal. Exam: General: Awake, alert in no distress Head: Normocephalic, atraumatic EENT: PERRL, Lids normal, sclera normal, conjunctiva normal, positive nystagmus with lateral gaze,nose normal , ears normal, throat without erythema or exudates Neck: Supple, no adenopathy Lung: breath sounds symmetric, no wheezing, rales or rhonchi Chest: symmetric movement, nontender Heart: regular rate and rhythm, normal S1, S2 no murmurs or rubs Abdomen: soft, non-tender, nondistended, normal bowel sounds Back: no vertebral tenderness, no CVAT Extremities: no deformities, moves all extremities symmetrically Neuro: General: Awake, alert, oriented, normal speech Cranial nerves: Cranial nerves intact Strength: Moves all extremities symmetrically, strength 5/5 Cerebellar: Good pyvsvo-qs-mpmg-to-finger, good rapid finger movement, normal heel to guerin, dizziness with position change Psych: Pleasant, cooperative Medical Decision Making Medical Decision Making [facility] Narrative: 59-year-old female with history of vertigo,hypertension,hyperlipidemia, inferior STEMI with attempted PCI, coronary dissection resulting in 2 vessel Coronary artery bypass grafting 11/2011, ischemic cardiomyopathy whowho presents emergency department for evaluation dizziness, nausea, feeling off balance with symptoms starting on the morning evaluation. The patient states that this morning she was in bed and reached for her phone and then noted that the room was spinning. The patient had nausea but no vomiting. She states that if she stays still her symptoms resolved completely. She states that with minimal movement of her head the symptoms recur. she states that she was diagnosed with vertigo approximately 1 year prior and her symptoms were similar at that time. She denied fever, chills, chest pain, shortness of breath, abdominal pain, change in bowel movements, frequency, urgency or dysuria. vital signs were normal. Patient did have nystagmus inducible vertigo with minimal position change. Neurologic exam was nonfocal with normal cerebellar exam. Differential diagnosis: Includes but is not limited to Stroke, Course: my independent interpretation patient's laboratory evaluation CBC was normal. Chloride was low 109, glucose elevated 128. COVID-19, influenza and RSV tests were negative. patient's 12 EKG is consistent with old inferior TN which is old with no acute findings. Patient's presentation physical exam findings are consistent with benign positional vertigo. I did discuss this with the patient. Patient was advised to take meclizine 25 mg 3 times a day as needed for dizziness. She was given printed and verbal instructions and discharged home. Admission/Observation Consideration of admission/observation: Escalation of care including admission/observation considered ( Yes) Lab Data [facility] Lab Attestation statement: I reviewed the patient's lab results. 08/21/24 22:39 08/21/24 22:39 Labs: Lab Results 08/21/24 Range/Units 22:39 WBC 7.8 (4.8-10.8) X10*3/uL RBC 4.86 (4.20-5.50) X10*6/uL Hgb 14.7 (12.0-16.0) g/dl Hct 44.0 (37.0-47.0) % MCV 90.5 (80.0-98.0) fL MCH 30.2 (27.0-33.0) pg MCHC 33.4 (31.0-35.0) g/dl RDW 13.2 (11.0-16.0) % Plt Count 254 D (160-400) X10*3/uL MPV 9.1 L (9.4-12.3) fL Immature Gran % (Auto) 0.3 (0.0-0.4) % Neut % (Auto) 37.0 L (45-73) % Lymph % (Auto) 50.8 H (20-40) % [place] % (Auto) 7.8 (2-11) % Eos % (Auto) 3.2 (0-4) % Baso % (Auto) 0.9 (0-2) % Lymph # (Auto) 4.0 (1.2-4.9) X10*3/uL [place] # (Auto) 0.6 (0.1-1.2) X10*3/uL Eos # (Auto) 0.3 (0.0-0.4) X10*3/uL Baso # (Auto) 0.1 (0.0-0.2) X10*3/uL Abs Immat Gran (auto) 0.02 (0.00-0.03) X10*3/uL Absolute Neuts (auto) 2.9 (2.0-8.3) x10*3/uL Absolute Nucleated RBC 0.000 (0.0-0.012) X10*3/uL Nucleated RBC % (auto) 0.0 (0.0-0.2) /100WBC Sodium 141 (135-145) mmol/L Potassium 4.0 (3.3-5.1) mmol/L Chloride 109 H (96-108) mmol/L Carbon Dioxide 25 (22-29) mmol/L Anion Gap 11 L (12-20) BUN 12 (9-16) mg/dL Creatinine 0.79 (0.5-1.4) mg/dL Estim Creat Clear Calc 65.5 Estimated GFR > 60 Random Glucose 128 H (60-115) mg/dL Calcium 9.4 D (8.4-10.2) mg/dL Influenza Type A (PCR) NEGATIVE (Negative) Influenza Type B (PCR) NEGATIVE (Negative) RSV RNA Qual (PCR) NEGATIVE (Negative) SARS-CoV-2 RNA (RT-PCR) NEGATIVE (Negative) Independent Interpretation I performed an independent interpretation of an: EKG Interpretation: My independent interpretation of patient's 12 EKG done on 08/21/2024 at 22:28 hours is as follows: Normal sinus rhythm with rate of 18, normal IN interval, QRS duration QTC interval, Q-waves in 3 and AVF, no ST segment elevation, less than [address] segment depression leads 1, 2, aVL, V5 and V6, nonspecific T-wave abnormalities, no PACs, no PVCs. No old EKG for comparison. External Record Review External record reviewed: Office record ( cardiology office notes) Chronic Conditions Patient?s care impacted by: Hypertension and Other ( coronary artery disease, cardiomyopathy) Discharge Plan Discharge Clinical Impression: Vertigo Patient Disposition: Home, Self-Care Prescriptions: No Action benzonatate 100 mg capsule 100 mg PO bid-tid PRN (Reason: Cough) Qty: 20 0RF metoprolol succinate 25 mg tablet extended release 24 hr 25 mg PO DAILY fluticasone propionate 50 mcg/actuation spray,suspension intranasal fexofenadine 180 mg tablet 180 mg PO DAILY atorvastatin 80 mg tablet 80 mg PO DAILY aspirin 81 mg tablet,delayed release (DR/EC) 81 mg PO DAILY ipratropium bromide 21 mcg (0.03 %) spray,non-aerosol 2 spray intranasal BID-TID PRN (Reason: allergy symptoms) Qty: 30 0RF Rx Instructions: administer into each nostril prednisone 20 mg tablet 40 mg PO DAILY 5 Days Qty: 10 0RF albuterol sulfate 90 mcg/actuation HFA aerosol inhaler 2 puff inhalation Q6H PRN (Reason: shortness of breath or wheezing or cough) Qty: 8.5 0RF Interventions: ED Discharge Assessment Last Done: 08/22/24 05:11 Discharge Date/Time: 08/22/24 05:14 Print Language: Indonesian
== END 2024-08-22 05:14 | disposition home or self-care (01) ==
PROVIDERS: Emergency Medicine; Emergency Provider Emergency Medicine Emergency Medical Services; PCP Internal Medicine
DX: R42 Dizziness and giddiness (principal); Z03.818 Encounter for observation for suspected exposure to other biological agents ruled out; Z95.1 Presence of aortocoronary bypass graft
CPT/HCPCS: 0241U; 36415; 80048; 85025; 93005; 99283; 99284

== ENCOUNTER → 2024-08-21 21:59 | Outpatient (BNV) | payer OTHER, SELFPAY | PROVIDERS: Emergency Provider Emergency Medicine Emergency Medical Services; PCP Internal Medicine; Visit Provider Internal Medicine Cardiovascular Disease | DX: R94.31 Abnormal electrocardiogram [ECG] [EKG] (principal); R42 Dizziness and giddiness | CPT/HCPCS: 93010 ==

== ENCOUNTER 2024-08-31 08:01 | Outpatient (REF) | payer OTHER, SELFPAY ==
[2024-08-31 12:24] LABS: Influenza A PCR NEGATIVE (Negative); Influenza B PCR NEGATIVE (Negative); Resp Syncy Virus RNA Qual PCR NEGATIVE (Negative); SARS COV2 PCR INHOUSE NEGATIVE (Negative)
== END 2024-08-31 08:02 | disposition home or self-care (01) ==
LOC: HO.LNP 08:01
PROVIDERS: PCP Internal Medicine; Visit Provider Physician Assistant
DX: J06.9 Acute upper respiratory infection, unspecified (principal)
CPT/HCPCS: 0241U

== ENCOUNTER 2024-08-31 08:01 | Outpatient (AMB) | payer OTHER, SELFPAY ==
--- OUTSIDE RECORDS SUMMARY | 2024-08-31 08:03 | XMS_ITS | Clinical Summary ---
Author Organization [facility] 444 [facility] Address [address] [place] [address] Phone Care Team Providers Care Front Desk Admin Name Role Phone Matthew Howard MD Primary Care Provider [phone] Allergies Active Allergy Reactions Criticality Noted Date Comments Lorazepam Swelling Low 11/20/2012 Medications aspirin 81 mg EC tablet Take 1 Tab by mouth daily. 0 Active atorvastatin (LIPITOR) 80 mg tablet Take 1 Tablet by mouth daily. 4 Active vitamin E mixed 400 unit capsule TAKE 2 CAPSULES BY MOUTH DAILY 4 Active imiquimod (ALDARA) 5 % cream Apply to affected area three times a week (every other day) at bedtime and wash off in the morning, for four weeks, can repeat for up to four months. 3 Active fexofenadine (MIRELA) 180 mg tablet Take 1 Tablet by mouth daily. 4 Active fluticasone propionate (FLONASE) 50 mcg/actuation nasal spray Administer 2 sprays into each nostril 1 (one) time each day. USE 1 SPRAY IN EACH NOSTRIL ONCE DAILY 16 g 1 5 Active metoprolol succinate (TOPROL-XL) 25 mg 24 hr tablet Take 1 tablet (25 mg total) by mouth 1 (one) time each day. Do not crush or chew. 90 tablet 5 Active Active Problems Problem Noted Date Diagnosed Date Primary hypertension 05/09/2024 Migraine 01/03/2024 Fatty liver 08/07/2020 Elevated LFTs [...] HISTORICAL TUBAL LIGATION PARTIAL HYSTERECTOMY 2009 PROCEDURE: [place] SUPRACERVICAL ABDL HYSTER W/WO RMVL TUBE OVARY; [...] drink = 0.6 oz pur e alcohol) Comments Unknown Sex and Gender Information Value Date Recorded Sex Assigned at Not on file Legal Sex Female 8:36 PM EST Gender Identity Not on file Sexual Orientation Not on file Obstetrics History Last Filed Vital Signs Vital Sign Reading Time Taken Comments Blood Pressure 116/78 05/09/2024 9:30 AM EST Pulse 96 05/09/2024 9:30 AM EST Temperature 36.5 ??C (97.7 ??F) 05/09/2024 9:30 AM ES T Respiratory Rate 16 05/09/2024 9:30 AM EST Oxygen Saturation - - Inhaled Oxygen Concentration - - Weight 63 kg (139 lb) 05/09/2024 9:30 AM EST Height 154.9 cm (5' 1 ) 05/09/2024 9:30 AM EST Body Mass Index 26.26 05/09/2024 9:30 AM EST Plan of Treatment Upcoming Encounters Date Type Department Care Team (Late st Contact Info) Description 11/13/2024 7:30 AM EDT Office Visit Adult Medicine [address] [phone] Cecy Aldrich PA [address] [place] [phone] Health Maintenance Due Date Last Done Comments Hepatitis B Vaccines (1 of 3 - 19+ 3-dose series) 02/29/1984 Pneumococcal Vaccine: 50+ Years (2 of 2 - PCV) 02/12/2013 02/13/2012 Pneumococcal Vaccine: Pediatrics (0 to 5 Years) [...] Screening 03/06/2022 COVID-19 Vaccine ( season) 2023 12/20/2020, 09/27/2020 Hypertension/CHF/CAD Annual BMP Blood Test 08/10/2024 08/11/2023 Colorectal Cancer Screening: Colonoscopy 08/12/2025 08/13/2015 Cervical Cancer Screening: HPV 11/04/2025 11/04/2020 Cholesterol Screening (Lipid Panel) 08/10/2028 08/11/2023, 08/11/2023 RSV Immunization Adult Patients (1 - 1-dose 75+ series) 02/29/2040 Influenza Vaccine Completed 01/16/2024, , 01/08/2021, Additional history exists HIB Vaccines Aged Out No longer eligi [...] patient's age to complete this topic Meningococcal B Vaccine Aged Out No l onger eligible based on patient's age to complete [...] * Lipid panel (08/11/2023) LDL/HDL Ratio 2 <=4 Triglycerides 137 0 - 150 mg/dL Cholesterol 100 0 - 200 mg/dL HDL 42 >=40 mg/dL LDL Cholesterol 31 0 - 100 mg/dL Blood Venous blood specimen / Unknown us Historical Provider MD LAB BLOOD ORDERABLES Caren l Result * Cervical Cancer Screening: HPV (11/04/2020) Pathologist [facility] Cervical Cancer Screening: HPV No interpreta tion,abstr acted Historical Provider HEALTH MAINTENANCE Final Result * SCR MAMMO BI INCL CAD (06/12/2018 [...] (<15%) Matthew Howard MD IMG XR PROCEDURES Final Result * Colonoscopy (08/13/2015) Colonoscopy No interpreta tion,abstr acted Anatomical Region Laterality Modality Other Historical Provider HEALTH MAINTENANCE Final Result from Last 3 Months or Most Recently Relevant to Health Maintenance Insurance [employer] [facility] Care Teams Front Desk Admin Relationship Specialty Start Date End Date Matthew Howard MD [address] [place] [phone] PCP - General 01/23/08
--- NOTE | 2024-08-31 08:09 | AM.OFFWIN_ITS ---
Intake Vital Signs 08/31/24 08:14 BMI Reason not done Patient refused/unable BP 138/88 Blood Pressure Location Lt brachial Position Sitting Respiration 16 Pulse 80 Pulse Source Pulse Oximeter Temp 98.8 F Temp Source Oral Pulse Oximetry (%) 98 Oxygen Delivery Method Room Air Intake Visit Reasons: EP-sinus issues, cough, body ache Intake Note: Pt is here today c/o sinus congestion, cough and bodyache fatigue x4days Patient Tobacco Use Status: Never used Tobacco Allergies cabbage Allergy (Severe, Verified 08/31/24 08:16) HIVES lorazepam [Ativan] Allergy (Severe, Verified 08/31/24 08:16) Swelling peanut [PEANUT] Allergy (Unknown, Verified 08/31/24 08:16) HIVES SEAFOOD Allergy (Severe, Uncoded 08/31/24 08:16) DIFFICULTY BREATHING HPI HPI Comments History of Present Illness Details She oresents to office with cold symptoms Tuesday onset with ST Onset + sneezing, runny nose, congestion Associated fagtigue, L ear blocked and headache + yellow phlegm with cough Admits to flu/strep exposure to granddaughter 1 week ago + bosy aches No fevers documented She denies taking any medicine but has been resting No SOB or CP PFSH Medical History (Updated 08/31/24 @ 08:44 by Gwendolyn Lombardo PA-C) Acute respiratory disease Ischemic cardiomyopathy Palpitations Coronary artery dissection Surgical History H/O tubal ligation H/O: hysterectomy S/P CABG x 2 Family History Father Diabetes Hypertension Cirrhosis Mother Hypertension Arthritis Osteoporosis FHx: mental illness Social History Alcohol intake: current Alcohol intake frequency: does not drink Alcohol type: wine Patient Tobacco Use Status: Never used Tobacco Review of Systems Const Reports body aches, Denies chills, Reports fatigue, Denies fever(s) and Reports headache(s) Eyes Denies change in vision ENT Reports vertigo (seen in ER last week for it; improved with meclizine), Denies otalgia (blocked), Reports headache(s), Reports nasal congestion, Reports sinus pressure and Reports sore throat (resolved) Card Denies chest pain, Denies syncope and Denies dyspnea Resp Reports cough and Denies dyspnea Musc Reports myalgias Neuro Reports vertigo (seen in ER last week for it; improved with meclizine), Denies syncope and Reports headache(s) Endo Reports fatigue Physical Exam Vital Signs: Last Vital Signs Temp 98.8 F 08/31/24 08:14 Pulse 80 08/31/24 08:14 Resp 16 08/31/24 08:14 BP 138/88 08/31/24 08:14 Pulse Ox 98 08/31/24 08:14 Oxygen Delivery Method Room Air 08/31/24 08:14 General: Non-toxic, NAD. Speaking full sentences. Skin: Warm dry throughout Eye: EOMI, PERRLA HENT: Airway patent. Uvula midline. No pharyngeal erythema or edema. No PLATFORM INSPECTOR. + rhinorrhea Bilateral canals clear. Slight fluid behind bilateral TMs, L>R. L TM slight erythema without bulging or perforation. R TM non-erythematous, non-bulging. No TM perforation or hemotympanum noted. Respiratory: CTA bilaterally. No wheezes, rales or rhonchi Cardiac: RRR. No murmur MSK: Full ROM extremities. Neurology: Alert. No aphasia or facial droop. Gait without abnormality Psych: Good mood and affect Assessment & Plan Assessment & Plan (1) Upper respiratory infection: Comment: Strep test was negative. Patient likely has upper respiratory infection. Given Ipratroprium bromide to use in place of flonase Continue antihistamine OTC Increase fluids Meclizine as previously directed PRN dizziness Discussed ER s/s to monitor for Discussed bacterial sinusitis symptoms and will monitor and call if worse Pt gave verbal understanding and has no additional questions at discharge Code(s): J06.9 - Acute upper respiratory infection, unspecified Qualifiers: URI type: unspecified URI Qualified Code(s): J06.9 - Acute upper respiratory infection, unspecified Plan: see above RSV/FLu/COVID swab ordered and obtained Orders: Orders SARS-CoV2/FLU/RSV Today J06.9 - Acute upper respiratory infection, unspecified Medications: New ipratropium bromide administer into each nostril 2 sprays intranasal BID-TID PRN 30 mL 0RF allergy symptoms Coding Level of Care Code Est Pt Level 3 (73805) Diagnoses Upper respiratory tract infection, unspecified type J06.9 URI type: unspecified URI
[2024-08-31 08:14] VITALS: BP 138/88; PULSE 80; RESP 16; TEMP 37.1; O2SAT 98
== END 2024-08-31 08:41 | disposition home or self-care (01) ==
PROVIDERS: PCP Internal Medicine; Visit Provider Physician Assistant
DX: J06.9 Acute upper respiratory infection, unspecified (principal)

== ENCOUNTER 2024-09-18 13:37 | Outpatient (AMB) | payer OTHER, SELFPAY ==
[2024-09-18 13:54] VITALS: BP 132/76; PULSE 80; O2SAT 98
--- NOTE | 2024-09-18 13:54 | AM.OFFWIN_ITS ---
Intake Vital Signs 09/18/24 13:54 Height 5 ft 1 in BP 132/76 Blood Pressure Location Lt brachial Position Sitting Pulse 80 Pulse Source Pulse Oximeter Pulse Oximetry (%) 98 Oxygen Delivery Method Room Air Oxygen Flow Rate 99.0 Intake Visit Reasons: EP Cough, headache Patient Tobacco Use Status: Never used Tobacco Manager Leadership Development Required: No Is last menstrual period known: No Patient : No Allergies cabbage Allergy (Severe, Verified 09/18/24 13:57) HIVES lorazepam (Ativan) Allergy (Severe, Verified 09/18/24 13:57) Swelling peanut (PEANUT) Allergy (Unknown, Verified 09/18/24 13:57) HIVES SEAFOOD Allergy (Severe, Uncoded 08/31/24 08:16) DIFFICULTY BREATHING HPI HPI Comments History of Present Illness Details History - The patient is a 59-year-old female pr esenting with a persistent dry cough. - The cough began yesterday while at wor k and has been constant since then. - The patient denies any history of asth ma and reports that her was sick with a cough and congestion a week ago. - She denies sore throat, fever, headach e, nausea, vomiting, chest pain, or nasal congestion. - She has been taking Coricidin for the cough due to her heart condition. - The patient does not smoke and no one else besides her was sick. - She denies ZAMORA, sore throat, abd pain, or back pain. Physical Exam General: Cooperative, healthy appearing, comfortable and no acute distress Orientation/consciousness: Patient oriented x3 Head: Normal to inspection Ears: Hearing grossly normal bilaterally, external ears normal and TM's normal bilaterally Nose: Normal external nose present, normal nares present, and no nasal discharge present. Face and sinus: Sinuses nontender to palpation. Mouth: Normal oral and palatal mucosa present and moist mucous membranes noted. Throat: Tonsils normal. Uvula is midline. Posterior oropharynx with erythema and no exudates. Neck: Normal visual inspection, full ROM. No lymphadenopathy noted. Respiratory: Clear to auscultation bilaterally. Normal respiratory effort, able to speak in complete sentences. No respiratory distress, not tachypneic, no tripod positioning and no use of accessory muscles. Cardiovascular: Regular rate and rhythm. Normal S1 and S2 Skin: No rashes or lesions noted Patient was informed and verbally consented to the use of an ambient scribe for clinic note documentation during this visit [facility] Medical History (Updated 09/18/24 @ 14:26 by Laila Real PA-C) Acute respiratory disease Ischemic cardiomyopathy Palpitations Coronary artery dissection Surgical History H/O tubal ligation H/O: hysterectomy S/P CABG x 2 Family History Father Diabetes Hypertension Cirrhosis Mother Hypertension Arthritis Osteoporosis FHx: mental illness Social History Alcohol intake: current Alcohol intake frequency: does not drink Alcohol type: wine Patient Tobacco Use Status: Never used Tobacco Patient : No Review of Systems Const All systems reviewed & are unremarkable except as noted in HPI and below Physical Exam Vital Signs: Last Vital Signs Pulse 80 09/18/24 13:54 BP 132/76 09/18/24 13:54 Pulse Ox 98 09/18/24 13:54 Oxygen Delivery Method Room Air 09/18/24 13:54 Oxygen Flow Rate 99.0 09/18/24 13:54 Assessment & Plan Assessment & Plan (1) Cough: Code(s): R05.9 - Cough, unspecified Qualifiers: Cough type: acute Qualified Code(s): R05.1 - Acute cough Plan Most likely URI vs covid vs flu vs CAP vs bronchitis Plan - Conduct testing for COVID-19, Influenza, and RSV to rule out viral infections. - Prescribe albuterol as needed. - Continue with OTC cough medication - Will order prednisone for 5 days. - Provide a note for work if needed. Orders: Orders SARS-CoV2/FLU/RSV Today R09.89 - Other specified symptoms and signs involving the circulatory and respiratory systems Medications: New prednisone 40 mg (2 x 20 mg) PO DAILY 10 tabs 0RF 5 days albuterol sulfate 90 mcg/actuation 2 puffs inhalation Q6H PRN 8.5 grams 0RF shortness of breath or wheezing or cough Coding Level of Care Code Est Pt Level 3 (73750) Diagnoses Acute cough R05.1 Cough type: acute
--- OUTSIDE RECORDS SUMMARY | 2024-09-18 15:51 | XMS_ITS | Patient Health Record ---
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 Filter Tender Jelly Name Role Phone Matthew Howard MD Primary Care Provider Bk Gomez [phone] Allergies Allergen (clinical drug ingredient) Drug/Non Drug Allergy documented on EMR Reaction Allergy Type Onset Date Status lorazepam Ativan Unknown Drug Allergy Active Reason For Referral No Information Medications Medication SIG (Take, Route, Frequency, Duration) Notes Start Date End Date Status Aspir-81 81 MG 1 tablet Orally Once a day Active Metoprolol Succinate ER 25 MG 1 tablet Orally Once a day A ctive Problems Problem Type SNOMED Code ICD Code Onset Dates Problem Status W/U Status Risk Notes Problem 454404184 Encounter for screening for malignant neoplasm of colon (Z12.11) Active confirmed Problem Screening for malignant neoplasm of rectum (916217583) Encounter for screening for malignant neoplasm of rectum (Z12.12) Active confirmed Problem 27016874 Preprocedural examination (Z01.818) Active confirmed Plan Of Treatment Future Test Test Name Order Date COLONOSCOPY 07/02/2015 Insurance Providers Payer Name Payer Address Payer Phone Subscriber Number Group Number Insured Name Patient Relationship to Insured Coverage Start Date Coverage End Date [facility] [address] [facility] [phone] [id number] PEDRO LUIS HARRIS Self - patient is the insured Medical (General) History Medical History History ICD Code [id number] Denies DM,CVA,Lung disease,renal disease Surgical History Surgery Date(Month/Year) Partial hysterectomy 2V-CABG 01/2012 BTL 1987
== END 2024-09-18 15:18 | disposition home or self-care (01) ==
PROVIDERS: PCP Internal Medicine; Visit Provider Physician Assistant Medical
DX: R05.1 Acute cough (principal)

== ENCOUNTER → 2024-09-18 13:37 | Outpatient (BNVA) | payer OTHER, SELFPAY | PROVIDERS: PCP Internal Medicine; Visit Provider Physician Assistant Medical | DX: Z13.89 Encounter for screening for other disorder (principal) ==

== ENCOUNTER 2024-09-18 16:30 | Outpatient (REF) | payer OTHER, SELFPAY ==
[2024-09-18 17:32] LABS: Influenza A PCR NEGATIVE (Negative); Influenza B PCR NEGATIVE (Negative); Resp Syncy Virus RNA Qual PCR NEGATIVE (Negative); SARS COV2 PCR INHOUSE NEGATIVE (Negative)
== END 2024-09-18 16:31 | disposition home or self-care (01) ==
LOC: HO.LNP 16:30
PROVIDERS: Visit Provider Physician Assistant Medical
DX: R09.89 Other specified symptoms and signs involving the circulatory and respiratory systems (principal)
CPT/HCPCS: 0241U

== ENCOUNTER 2025-02-25 12:41 | Emergency (ER) | payer OTHER, SELFPAY ==
[2025-02-25 12:48] VITALS: BP 144/74; PULSE 112; RESP 18; TEMP 36.6; O2SAT 97; BMI 25.4
--- NOTE | 2025-02-25 12:48 | ED.GENADULT ---
HPI - General Adult General Chief complaint: Back Pain/Injury Stated complaint: Knee Leg Pain Time Seen by Provider: 02/25/25 12:51 Source: patient, RN notes reviewed and old records reviewed Mode of arrival: ambulatory Limitations: no limitations History of Present Illness ED Provider: Timmy HPI narrative: Patient is a 59 year old female with history of sacroilitis, coronary artery dissection, ischemic cardiomyopathy presenting with complaint of severe lower back pain since yesterday, history of same in the past. Denies fall or other trauma. Unable to sit in triage due to pain. States pain feels similar to previous episodes of sacroilitis. Denies saddle anesthesia or bowel or bladder incontinence. Denies fevers. Denies any history of IV drug use. Reports pain radiating to mid left thigh. MD complaint: back pain Onset (ago): day(s) Related Data Home Medications ?Medication ?Instructions ?Recorded ?Confirmed aspirin 81 mg tablet,delayed 81 mg PO DAILY 02/14/20 12/15/23 release atorvastatin 80 mg tablet 80 mg PO DAILY 02/14/20 12/15/23 fexofenadine 180 mg tablet 180 mg PO DAILY 02/14/20 12/15/23 fluticasone propionate 50 spray intranasal 02/14/20 12/15/23 mcg/actuation nasal spray,suspension metoprolol succinate 25 mg 25 mg PO DAILY 02/14/20 12/15/23 tablet,extended release 24 hr Previous Rx's ?Medication ?Instructions ?Recorded ipratropium bromide 21 mcg (0.03 2 spray intranasal BID-TID PRN 08/31/24 %) nasal spray allergy symptoms #30 mL albuterol sulfate 90 mcg/actuation 2 puff inhalation Q6H PRN 09/18/24 aerosol inhaler shortness of breath or wheezing or cough #8.5 grams prednisone 20 mg tablet 40 mg (2 x 20 mg) PO DAILY 5 days 09/18/24 #10 tabs benzonatate 100 mg capsule 100 mg PO bid-tid PRN Cough #20 09/19/24 caps cyclobenzaprine 5 mg tablet 5 mg PO TID PRN muscle spasm #10 02/25/25 tabs lidocaine 5 % topical patch 1 patch topical DAILY #15 ea 02/25/25 prednisone 10 mg tablet See Rx Instructions .Route 02/25/25 .COMPLEX #15 tabs Allergies Allergy/AdvReac Type Severity Reaction Status Date / Time cabbage Allergy Severe HIVES Verified 02/25/25 12:50 lorazepam (Ativan) Allergy Severe Swelling Verified 02/25/25 12:50 peanut (PEANUT) Allergy Unknown HIVES Verified 02/25/25 12:50 SEAFOOD Allergy Severe DIFFICULTY Uncoded 02/25/25 12:50 BREATHING Review of Systems Review of Systems: as per HPI Yes all other systems are reviewed and are negative Constitutional: Constitutional: Reports as per HPI [facility] Past Medical History Medical History (Updated 02/25/25 @ 15:12 by Simona Warner NP) Acute respiratory disease Ischemic cardiomyopathy Palpitations Coronary artery dissection Surgical History H/O tubal ligation H/O: hysterectomy S/P CABG x 2 Family History Family History Father Diabetes Hypertension Cirrhosis Mother Hypertension Arthritis Osteoporosis FHx: mental illness Social History Social History Alcohol intake: current Alcohol intake frequency: does not drink Alcohol type: wine Patient Tobacco Use Status: Never used Tobacco Advance Directives: Yes Advance Directives Information Provided: Yes Advance Directives on File: No Do you have a plan to hurt others: No Plan Physical Exam ED Vital Signs: Vital Signs - 24 hr 02/25/25 12:48 Temperature 98 F Pulse Rate 112 H Respiratory Rate 18 Blood Pressure 144/74 H Pulse Oximetry 97 Oxygen Delivery Method Room Air BMI result Body Mass Index 25.4 Vital signs have been reviewed and appear to be correct. Blood pressure normal. Heart rate mildly tachycardic. Respiratory rate normal. Temperature normal. Oxygen saturation normal. Const General: cooperative, healthy appearing and no acute distress Orientation/consciousness: oriented to person, oriented to place, oriented to time and patient oriented x3 Limitations: no limitations HENMT Head: Yes normocephalic and Yes atraumatic Ears: external ears normal General nose exam: Normal external nose present Face and sinus: Yes face symmetric Mouth: oropharynx normal and moist mucous membranes Throat: Yes uvula midline Eyes Pupils: Equal, round and reactive pupils present Neck Neck: Yes normal visual inspection, Yes no meningeal signs and Yes supple Resp Effort & Inspection: normal respiratory effort and able to speak in complete sentences Auscultation: clear to auscultation bilaterally Cardio Rate: regular rate Rhythm: regular rhythm Heart sounds: S1 normal heart sound present and S2 normal heart sound present GI Palpation (GI): Soft to palpation and nontender Auscultation: normoactive bowel sounds General: Yes no CVA tenderness Back/Spine/Pelvis Back: no CVA tenderness Cervical Spine: normal cervical lordosis, cervical ROM normal, No Cervical spine tenderness and No step off deformity Thoracic/Lumbar Spine: thoracic and lumbar spine normal to inspection, thoraco-lumbar ROM normal, straight leg raise negative bilaterally, pain with thoraco-lumbar ROM, No thoracic spinal tenderness and No lumbar spinal tenderness Sacroiliac joints: on the left tender to palpation Skin General skin exam: elasticity normal and turgor normal Neuro General: oriented to person, oriented to place, oriented to time, patient oriented x3, gait normal, tone normal, moves all extremities, Normal light touch and pain sensation, no meningeal signs, no focal motor deficits, CN's II-XI intact bilaterally and deep tendon reflexes 2+ bilaterally Cranial nerves: Yes Equal, round and reactive pupils present Cognition (Neuro): normal cognition Motor exam (neuro): 5/5 motor strength present throughout, Normal motor muscle tone present throughout and Motor abnormalities not present Extrem General: Yes full ROM, Yes no pedal edema and Yes no calf tenderness Psych Mental Status: mental status grossly normal Affect: normal affect Thought process: Normal thought process present Medications Administered Discontinued Medications Generic Name Dose Route Start Last Admin Trade Name Radha PRN Reason Stop Dose Admin Cyclobenzaprine HCl 10 mg 02/25/25 12:53 02/25/25 13:16 Cyclobenzaprine Hcl 10 Mg Tablet PO 02/25/25 12:54 10 mg ONCE ONE Administration Ketorolac Tromethamine 30 mg 02/25/25 12:51 02/25/25 13:16 Ketorolac Tromethamine 30 Mg/Ml Vial IM 02/25/25 12:52 30 mg ONCE ONE Administration Morphine Sulfate 4 mg 02/25/25 14:30 02/25/25 15:01 Morphine Sulfate 4 Mg/Ml Cartridge IM 02/25/25 14:31 4 mg ONCE ONE Administration Protocol Prednisone 60 mg 02/25/25 12:51 02/25/25 13:16 Prednisone 20 Mg Tablet PO 02/25/25 12:52 60 mg ONCE ONE Administration Medical Decision Making Medical Decision Making [facility] Narrative: Patient is a 59 year old female with history of sacroilitis, coronary artery dissection, ischemic cardiomyopathy presenting with complaint of severe lower back pain since yesterday, history of same in the past. On exam patient is awake, A+Ox3, slightly tachycardic likely due to pain, VS otherwise WNL, afebrile, normal neurological exam without focal deficits, physical exam findings as above. Given reported symptoms and physical exam findings, initial differential includes but is not limited to initial differential includes lumbar strain, lumbar radiculopathy, degenerative disc disease, disc herniation, spinal stenosis, spondylosis. Unlikely vertebral fracture. Do not suspect malignancy/mass, SEA, cauda equina/cord compression based on HPI and physical exam findings. Do not feel imaging is warranted at this time as patient denies trauma. Will treat with toradol, flexeril and prednisone and reassess. Patient reports pain has decreased from 10/10 to 7/10 after medications. Will try one dose of IM morphine to reduce pain additionally, so it will be easier to manage at home. Patient and SO agreeable with this plan. Pain significantly decreased after morphine and patient feels comfortable with discharge home. Will discharge on prednisone taper, flexeril, and lidocaine patches. Advised follow up with PCP. Return precautions discussed. Patient verbalized understanding of and agreement with plan. Differential Diagnosis Differential Diagnoses: The differential diagnosis associated with the presentation includes as per [facility] Admission/Observation Consideration of admission/observation: Escalation of care including admission/observation considered Patient would have been admitted to the hospital and transferred to appropriate facility had their clinical presentation warranted hospital admission. External Record Review External record reviewed: Inpatient record, Office record and Outpatient record Prescription Management I considered prescription management with: Pain Medication and Other Discharge Plan Discharge Clinical Impression: Lumbar radiculopathy Patient Disposition: Home, Self-Care Instructions: Lumbar Radiculopathy (ED) Additional Instructions: You were evaluated in the emergency department today for lower back pain. This is likely due to an inflammation of the sciatic nerve with runs from the lower back down both legs. You are being prescribed a course of prednisone which is a steroid to decrease inflammation. You have been prescribed 5% topical lidocaine patches which you can wear for up to 12 hours in a 24 hour period. Do not apply heat directly over the patches. You have been prescribed cyclobenzaprine which is a muscle relaxer you can take every 8 hours as needed. Do not drink alcohol while taking this medication as it can cause excessive drowsiness. Use all medications as prescribed. Please schedule an appointment for follow-up with your primary care physician this week for further evaluation of your symptoms. Return to the emergency department if you experience worsening back pain, difficulty walking, fevers, numbness, tingling, incontinence, groin numbness or tingling, or any other concerning symptoms. Prescriptions: New prednisone 10 mg tablet See Rx Instructions .ROUTE .COMPLEX Qty: 15 0RF Rx Instructions: 50mg (5 tabs) x1 day, then 40 mg (4 tabs) x1 day, then 30 mg (3 tabs) x1 day, then 20 mg (2 tabs) times 1 day, then 10 mg (1 tab) x1 day lidocaine 5 % adhesive patch,medicated 1 patch topical DAILY Qty: 15 0RF Rx Instructions: leave on most painful area for up to 12 hrs cyclobenzaprine 5 mg tablet 5 mg PO TID PRN (Reason: muscle spasm) Qty: 10 0RF No Action benzonatate 100 mg capsule 100 mg PO bid-tid PRN (Reason: Cough) Qty: 20 0RF metoprolol succinate 25 mg tablet extended release 24 hr 25 mg PO DAILY fluticasone propionate 50 mcg/actuation spray,suspension intranasal fexofenadine 180 mg tablet 180 mg PO DAILY atorvastatin 80 mg tablet 80 mg PO DAILY aspirin 81 mg tablet,delayed release (DR/EC) 81 mg PO DAILY ipratropium bromide 21 mcg (0.03 %) spray,non-aerosol 2 spray intranasal BID-TID PRN (Reason: allergy symptoms) Qty: 30 0RF Rx Instructions: administer into each nostril prednisone 20 mg tablet 40 mg PO DAILY 5 Days Qty: 10 0RF albuterol sulfate 90 mcg/actuation HFA aerosol inhaler 2 puff inhalation Q6H PRN (Reason: shortness of breath or wheezing or cough) Qty: 8.5 0RF Stand Alone Forms: Work/School Release Interventions: ED Discharge Assessment Last Done: 02/25/25 16:01 Print Language: Honduran
[2025-02-25 16:01] VITALS: BP 115/58; PULSE 84; RESP 18; TEMP 36.6; O2SAT 98
--- OUTSIDE RECORDS SUMMARY | 2025-02-25 17:02 | XMS_ITS | Clinical Summary ---
Author Organization [facility] [address] Address [address] [place] [address] Phone Care Team Providers Care Inspector Materials And Processes Name Role Phone Matthew Howard MD Primary Care Provider [phone] Allergies Active Allergy Reactions Criticality Noted Date Comments Lorazepam Swelling Low 11/20/2012 Medications aspirin 81 mg EC tablet Take 1 Tab by mouth daily. 0 Active vitamin E mixed 400 unit capsule [...] ONCE DAILY 16 g 1 5 Active atorvastatin (LIPITOR) 80 mg tablet Take 1 tablet (80 mg total) by mouth 1 (one) time each day. Take 1 Tablet by mouth daily. 30 each 2 5 Active metoprolol succinate (TOPROL-XL) 25 mg 24 hr tablet Take 1 tablet (25 mg total) by mouth 1 (one) time each day. Do not crush or chew. 90 tablet Active Active Problems Problem Noted Date Diagnosed Date Primary hypertension 05/09/2024 Migraine 01/03/2024 Fatty liver 08/07/2020 Elevated LFTs 08/07/2020 Ischemic cardiomyopathy 08/13/2019 Pain and swelling of upper extremity 06/23/2015 Coronary artery disease 03/11/2012 Overview (01/03/2024): 2011 Condyloma acuminatum 06/28/2011 Allergic rhinitis 07/24/2008 Immunizations Immunization Administration Dates Next Due Influenza trivalent, with [...] HISTORICAL TUBAL LIGATION PARTIAL HYSTERECTOMY 2009 PROCEDURE: DC SUPRACERVICAL ABDL HYSTER W/WO RMVL TUBE OVARY; [...] 96 05/09/2024 9:30 AM EST Temperature 36.5 C (97.7 F) 05/09/2024 9:30 AM EST Respiratory Rate 16 05/09/2024 9:30 AM EST Oxygen Saturation - - Inhaled Oxygen Concentration - - Weight 63 kg (139 lb) 05/09/2024 9:30 AM EST Height 154.9 cm (5' 1 ) 05/09/2024 9:30 AM EST Body Mass Index 26.26 05/09/2024 9:30 AM EST Plan of Treatment Upcoming Encounters Date Type Department Care Team (Late st Contact Info) Description 05/23/2025 3:45 PM EST Office Visit Adult Medicine [address] [phone] Matthew Howard MD [address] [place] [address] Health Maintenance Due Date Last Done Comments Hepatitis B Vaccines (1 of 3 - 19+ 3-dose series) 02/29/1984 Pneumococcal Vaccine: 50+ Years (2 of 2 - PCV) 02/12/2013 02/13/2012 Zoster Vaccines (1 of 2) 2015 Breast Cancer Screening 06/12/2020 06/13/19 19, 06/01/2017, 05/28/2016 DTaP,Tdap,and Td Vaccines (3 - Td or Tdap) 12/09/2020 12/09/2010, 10/27/2007 HIV Screening 03/06/2022 Hepatitis C Screening 03/06/2022 Social Influencers of Health Screening 03/06/2022 Depression Screening 03/28/2024 Hypertension/CHF/CAD Annual BMP Blood Test 08/10/2024 08/11/2023 COVID-19 Vaccine ( season) 2024 12/20/2020, 09/27/2020 Influenza Vaccine (#1) 2024 , 01/01/2023, 01/08/2021, Additional history exists Colorectal Cancer Screening: Colonoscopy 08/12/2025 08/13/2015 Cervical Cancer Screening: HPV 11/04/2025 11/04/2020 Cholesterol Screening (Lipid Panel) 08/10/2028 08/11/2023, 08/11/2023 RSV Immunization Adult Patients (1 - 1-dose 75+ series) 02/29/2040 HIB [...] Result * Cervical Cancer Screening: HPV (11/04/2020) Cervical Cancer Screening: HPV No interpreta tion,abstr acted us Historical Provider HEALTH MAINTENANCE Final Result * [...] reviewed with CAD and compared to previous. The breasts are composed of fatty and fibroglandular tissue. No suspicious mass, architectural distortion or suspicious calcifications [...] % Breast cancer risk category Low (<15%) us Matthew Howard MD IMG XR PROCEDURES Final Result * Colonoscopy (08/13/2015) Colonoscopy No interpreta tion,abstr acted Anatomical Region Laterality Modality Other Historical Provider HEALTH MAINTENANCE Final Result from Last 3 Months or Most Recently Relevant to Health Maintenance Insurance Spinal Modulation [facility] Care Teams Inspector Materials And Processes Relationship Specialty Start Date End Date Matthew Howard MD [address] [place] [id number] PCP - General 01/23/08
== END 2025-02-25 16:05 | disposition home or self-care (01) ==
PROVIDERS: Emergency Provider Emergency Medicine Emergency Medical Services; PCP Internal Medicine
DX: M54.16 Radiculopathy, lumbar region (principal); Z88.8 Allergy status to other drugs, medicaments and biological substances; Z91.013 Allergy to seafood; Z91.018 Allergy to other foods
CPT/HCPCS: 96372; 99283; 99284; J1885; J2270